=== PATIENT | female | born 1960 ===

== ENCOUNTER 2020-09-06 12:00 | Outpatient (RCR) | payer OTHER, SELFPAY | END 2020-09-06 12:44 | disposition other institution (70) | LOC: HO.PT 12:00 | PROVIDERS: PCP Internal Medicine; Visit Provider Orthopaedic Surgery | DX: Z47.1 Aftercare following joint replacement surgery (principal); Z96.651 Presence of right artificial knee joint | CPT/HCPCS: 97110; 97140; 97161; 97530 ==

== ENCOUNTER 2020-11-06 07:54 | Outpatient (REF) | payer OTHER, SELFPAY ==
--- NOTE | ~2020-11-06 | XR_ITS ---
EXAMINATION: XR HAND, RIGHT XR HAND LEFT XR CERVICAL SPINE CLINICAL INFORMATION: Poly osteoarthritis. COMPARISON: None TECHNIQUE: Three views each hand. Three views cervical spine. FINDINGS: RIGHT HAND: There is mild loss of PIP and DIP joints of all digits. There is moderate periarticular spurring PIP joint 1st digit. No visible acute fracture, dislocation or subluxation seen. The soft tissues are normal. LEFT HAND: There is no visible acute fracture, dislocation or subluxation. There is loss of PIP and DIP joints of all digits including periarticular spurring PIP joint 1st digit. No bony erosive changes are seen. There is no soft tissue swelling. CERVICAL SPINE: There is mild straightening of the cervical lordosis. There is mild ventral spondylosis at C2-C3, C3-C4, C4-C5, C5-C6, and C6-C7 disc levels. There is moderate left facet joint arthropathy C3-C4, C4-C5 and C5-C6 disc levels. No visible acute fracture or dislocation seen. The prevertebral soft tissues are normal XR/XR hand LT min 3V IMPRESSION: Degenerative arthritic changes PIP and DIP joints both hands. There is periarticular spurring PIP joint both 1st digits. Findings are most suggestive of osteoarthritis. Degenerative ventral spondylosis cervical spine. There is moderate left facet joint hypertrophy and arthropathy C3-C4, C4-C5 and C5-C6 disc levels.
--- NOTE | ~2020-11-06 | XR_ITS ---
EXAMINATION: XR HAND, RIGHT XR HAND LEFT XR CERVICAL SPINE CLINICAL INFORMATION: Poly osteoarthritis. COMPARISON: None TECHNIQUE: Three views each hand. Three views cervical spine. FINDINGS: RIGHT HAND: There is mild loss of PIP and DIP joints of all digits. There is moderate periarticular spurring PIP joint 1st digit. No visible acute fracture, dislocation or subluxation seen. The soft tissues are normal. LEFT HAND: There is no visible acute fracture, dislocation or subluxation. There is loss of PIP and DIP joints of all digits including periarticular spurring PIP joint 1st digit. No bony erosive changes are seen. There is no soft tissue swelling. CERVICAL SPINE: There is mild straightening of the cervical lordosis. There is mild ventral spondylosis at C2-C3, C3-C4, C4-C5, C5-C6, and C6-C7 disc levels. There is moderate left facet joint arthropathy C3-C4, C4-C5 and C5-C6 disc levels. No visible acute fracture or dislocation seen. The prevertebral soft tissues are normal XR/XR cervical spine 2V IMPRESSION: Degenerative arthritic changes PIP and DIP joints both hands. There is periarticular spurring PIP joint both 1st digits. Findings are most suggestive of osteoarthritis. Degenerative ventral spondylosis cervical spine. There is moderate left facet joint hypertrophy and arthropathy C3-C4, C4-C5 and C5-C6 disc levels.
--- NOTE | ~2020-11-06 | XR_ITS ---
EXAMINATION: XR HAND, RIGHT XR HAND LEFT XR CERVICAL SPINE CLINICAL INFORMATION: Poly osteoarthritis. COMPARISON: None TECHNIQUE: Three views each hand. Three views cervical spine. FINDINGS: RIGHT HAND: There is mild loss of PIP and DIP joints of all digits. There is moderate periarticular spurring PIP joint 1st digit. No visible acute fracture, dislocation or subluxation seen. The soft tissues are normal. LEFT HAND: There is no visible acute fracture, dislocation or subluxation. There is loss of PIP and DIP joints of all digits including periarticular spurring PIP joint 1st digit. No bony erosive changes are seen. There is no soft tissue swelling. CERVICAL SPINE: There is mild straightening of the cervical lordosis. There is mild ventral spondylosis at C2-C3, C3-C4, C4-C5, C5-C6, and C6-C7 disc levels. There is moderate left facet joint arthropathy C3-C4, C4-C5 and C5-C6 disc levels. No visible acute fracture or dislocation seen. The prevertebral soft tissues are normal XR/XR hand RT min 3V IMPRESSION: Degenerative arthritic changes PIP and DIP joints both hands. There is periarticular spurring PIP joint both 1st digits. Findings are most suggestive of osteoarthritis. Degenerative ventral spondylosis cervical spine. There is moderate left facet joint hypertrophy and arthropathy C3-C4, C4-C5 and C5-C6 disc levels.
[2020-11-06 09:46] LABS: MANUAL DIFF FLAG NO
[2020-11-06 09:55] LABS: Basophils Absolute Auto 0.1 X10*3/uL (0.0-0.2); Basophils Percent Auto 0.8 % (0-2); Eosinophils Absolute Auto 0.1 X10*3/uL (0.0-0.4); Hemoglobin 12.7 g/dl (12.0-16.0); Imm Gran Abs Auto 0.02 X10*3/uL (0.00-0.03); Imm Gran Pct Auto 0.3 % (0.0-0.4); Lymphocytes Absolute Auto 1.6 X10*3/uL (1.2-4.9); Mean Corpuscular Hemoglobin 26.4 pg (27.0-33.0); Mean Corpuscular Volume 85.2 fL (80-98); Mean Platelet Volume 9.3 fL (9.4-12.3); Monocytes Absolute Auto 0.6 X10*3/uL (0.1-1.2); Neutrophils Absolute Auto 4.3 X10*3/uL (2.0-8.3); Neutrophils Percent Auto 63.9 % (45-73); Platelet Count 327 X10*3/uL (160-400); Red Blood Count 4.81 X10*6/uL (4.20-5.50); Red Cell Distribution Width 14.1 % (11.0-16.0); White Blood Count 6.7 X10*3/uL (4.8-10.8)
[2020-11-06 10:18] LABS: Alanine Aminotransferase 27 U/L (0-31); Albumin Level 3.9 g/dL (3.5-5.0); Alkaline Phosphatase 88 U/L (39-117); Anion Gap 12 (12-20); Aspartate Amino Transferase 18 U/L (5-31); Blood Urea Nitrogen 16 mg/dL (9-16); C Reactive Protein 0.57 mg/dL (< or = 0.50); Calcium 9.3 mg/dL (8.4-10.2); Carbon Dioxide 30 mmol/L (22-29); Chloride 106 mmol/L (96-108); Estimated Glomerular Filt Rate > 60; Glucose Random 99 mg/dL (60-115); Potassium 4.8 mmol/L (3.3-5.1); Rheumatoid Factor 15.6 IU/mL (<15.0); Sodium 143 mmol/L (135-145); Total Protein 6.8 g/dL (6.5-8.0)
[2020-11-06 10:26] LABS: Bilirubin Total 0.5 mg/dL (0.0-1.0)
[2020-11-06 11:24] LABS: Erythrocyte Sedimentation Rate 28 MM/HR (0-20)
[2020-11-07 05:17] LABS: Lyme Abs Screen <0.90 index
[2020-11-07 21:27] LABS: Cyclic Citrullinated Peptide <16 UNITS
== END 2020-11-06 07:55 | disposition home or self-care (01) ==
LOC: HO.LAB 07:54
PROVIDERS: PCP Internal Medicine; Visit Provider Student in an Organized Health Care Education/Training Program
DX: M15.9 Polyosteoarthritis, unspecified (principal)
CPT/HCPCS: 36415; 72040; 73130; 80053; 85025; 85652; 86140; 86200; 86431; 86617; 86618; 99202

== ENCOUNTER → 2020-12-05 12:31 | Outpatient (BNVA) | payer OTHER, SELFPAY | PROVIDERS: PCP Internal Medicine; Visit Provider Student in an Organized Health Care Education/Training Program | DX: M15.9 Polyosteoarthritis, unspecified (principal); M47.812 Spondylosis without myelopathy or radiculopathy, cervical region | CPT/HCPCS: 99212 ==

== ENCOUNTER 2020-12-05 16:37 | Observation (INO) | payer OTHER, SELFPAY ==
--- NOTE | 2020-12-05 | ECG_ITS ---
Test Reason : SYNCOPE,DIZZINESS Blood Pressure : / mmHG Vent. Rate : 065 BPM Atrial Rate : 065 BPM P-R Int : 162 ms QRS Dur : 092 ms QT Int : 462 ms P-R-T Axes : 024 020 053 degrees QTc Int : 480 ms Normal sinus rhythm Prolonged QT Abnormal ECG When compared with ECG of 02-SEP-2014 17:21, No significant change was found Referred By: Generic ED Physician Electronically Signed By:ANNETTE POOL MD
--- NOTE | ~2020-12-05 | XR_ITS ---
EXAMINATION: XR CHEST CLINICAL INFORMATION: Shortness of breath COMPARISON: 07/31/2019 TECHNIQUE: Frontal view of the chest was obtained. FINDINGS: There is cardiac enlargement. Heart size appears larger than previously noted but some of this may be due to technique. Some left basilar atelectasis is present. No infiltrates, effusions, lung masses or CHF is present XR/XR chest 1V IMPRESSION: Cardiomegaly without acute intrathoracic disease. Left basilar atelectasis.
--- NOTE | ~2020-12-05 | CT_ITS ---
EXAMINATION: CT HEAD WITHOUT CONTRAST CLINICAL INFORMATION: Headache COMPARISON: 08/22/2019 TECHNIQUE: Contiguous axial imaging was performed from the skull base to vertex without intravenous administration of contrast. This CT examination was performed using dose optimization techniques as appropriate, variously including the following: *Automated exposure control *Adjustment of mA and/or kV according to patient size (this includes techniques or standardized protocols for targeted exams where dose is matched to indication/reason for exam; i.e. extremities or head) *Use of iterative reconstruction technique DLP: 770 mGy-cm FINDINGS: There is no evidence of acute intracranial hemorrhage or territorial infarction. No abnormal mass effect or midline shift is seen. Tyler to white matter differentiation is well preserved. No extra-axial fluid collections are identified. The ventricles are normal in size. There is no abnormal attenuation within the brain parenchyma. The osseous structures and soft tissues are normal. The mastoid air cells and visualized portions of the paranasal sinuses are well aerated. CT/CT head/brain wo con IMPRESSION: No acute intracranial pathology.
[2020-12-05 18:29] VITALS: BP 133/69; PULSE 70; RESP 20; TEMP 36.6; O2SAT 99; BMI 44.6
[2020-12-05 20:33] VITALS: BP 101/44; PULSE 71; RESP 18; O2SAT 96
[2020-12-05 20:44] LABS: MANUAL DIFF FLAG NO
[2020-12-05 20:46] LABS: Basophils Percent Auto 0.5 % (0-2); Eosinophils Absolute Auto 0.1 X10*3/uL (0.0-0.4); Eosinophils Percent Auto 1.5 % (0-4); Hematocrit 42.1 % (37-47); Hemoglobin 13.4 g/dl (12.0-16.0); Imm Gran Abs Auto 0.01 X10*3/uL (0.00-0.03); Imm Gran Pct Auto 0.1 % (0.0-0.4); Lymphocytes Absolute Auto 1.5 X10*3/uL (1.2-4.9); Lymphocytes Percent Auto 19.4 % (20-40); Mean Corpuscular HGB Conc 31.8 g/dl (31.0-35.0); Mean Corpuscular Hemoglobin 27.1 pg (27.0-33.0); Mean Corpuscular Volume 85.1 fL (80-98); Monocytes Absolute Auto 0.6 X10*3/uL (0.1-1.2); Monocytes Percent Auto 7.3 % (2-11); Neutrophils Absolute Auto 5.4 X10*3/uL (2.0-8.3); Neutrophils Percent Auto 71.2 % (45-73); Platelet Count 314 X10*3/uL (160-400); Red Blood Count 4.95 X10*6/uL (4.20-5.50); Red Cell Distribution Width 14.2 % (11.0-16.0); White Blood Count 7.5 X10*3/uL (4.8-10.8)
[2020-12-05 21:19] LABS: Troponin-I High Sensitivity < 3.5 ng/L (<3.5-17.0)
[2020-12-05 21:25] LABS: Alanine Aminotransferase 18 U/L (0-31); Albumin Level 4.1 g/dL (3.5-5.0); Alkaline Phosphatase 95 U/L (39-117); Anion Gap 14 (12-20); Aspartate Amino Transferase 16 U/L (5-31); Bilirubin Total < 0.2 mg/dL (0.0-1.0); Calcium 9.1 mg/dL (8.4-10.2); Carbon Dioxide 28 mmol/L (22-29); Chloride 104 mmol/L (96-108); Creatinine Clr Calc Pharmacy 85.2; Estimated Glomerular Filt Rate > 60; Glucose Random 90 mg/dL (60-115); Potassium 3.9 mmol/L (3.3-5.1); Sodium 142 mmol/L (135-145); Total Protein 7.1 g/dL (6.5-8.0)
[2020-12-05 21:34] LABS: Blood Urea Nitrogen 14 mg/dL (9-16)
[2020-12-06] VITALS (10 sets, daily range): BP systolic 125–160; BP diastolic 61–79; PULSE 84–97; RESP 12–24; TEMP 36.3–37.1; O2SAT 95–98
[2020-12-06] MEDS: 0.9 % Sodium Chloride 1,000 ML 999 ML IV (00:23)
[2020-12-06] MEDS: Ketorolac Tromethamine 15 MG/ML VIAL IVPUSH (00:23)
[2020-12-06] MEDS: Metoclopramide HCl 10 MG/2 ML VIAL IVPUSH (00:23)
[2020-12-06] MEDS: diphenhydrAMINE HCL 50 MG/ML VIAL 25 MG IVPUSH (00:23)
--- NOTE | 2020-12-06 00:35 | ED.CHESTPAIN ---
HPI - Chest Pain General Chief Complaint: Chest Pain Stated Complaint: dizziness, cant see from left eye Time Seen by Provider: 12/05/20 23:56 History of Present Illness HPI narrative: Patient is 59 years old presents today with having headaches. The headache is over the left side of her head. Associated with nausea. Patient in addition had chest pain and then felt lightheaded and passed out. Patient claims she was sitting there and passed out twice. Both times she had chest tightness. Denies any diaphoresis. No shortness of breath. Patient is from home. No coughing or congestion or upper respiratory symptoms. No vomiting. No history of stress test in the past. Positive history of hypertension, question history of TIA. It was documented in a previous clinic note. No fever no chills. Patient from home. Related Data Home Medications Medication Instructions Recorded Confirmed fluticasone 100 mcg-salmeterol 50 1 inh INHALATION BID 10/26/20 11/12/20 mcg/dose blistr powdr for inhalation nifedipine 90 mg tablet,extended 90 mg PO DAILY 10/26/20 11/12/20 release 24 hr omeprazole 20 mg capsule,delayed 20 mg PO DAILY 10/26/20 11/12/20 release diclofenac sodium 1 % topical gel 2 g TOPICAL QID 11/06/20 11/12/20 furosemide 40 mg tablet 40 mg PO Q OTHER DAY 11/06/20 11/12/20 Previous Rx's Medication Instructions Recorded fexofenadine 180 mg tablet 180 mg PO DAILY 30 Days #30 tab 11/12/20 fluticasone propionate 50 1 spray INTRANASAL DAILY 30 Days 11/12/20 mcg/actuation nasal #16 g spray,suspension labetalol 300 mg tablet 300 mg PO BID 30 Days #60 tab 11/12/20 prednisone 10 mg tablet 10 mg PO DAILY 6 Days #12 tab 11/12/20 albuterol sulfate 90 mcg/actuation 2 puff INHALATION Q4-6H 30 Days 12/05/20 aerosol inhaler #8.5 g Allergies Allergy/AdvReac Type Severity Reaction Status Date / Time Bryon inhibitors Allergy Unknown Unknown Verified 12/05/20 12:37 Ketoprofen Allergy Unknown unknown Verified 12/05/20 12:37 Review of Systems Review of Systems: Constitutional: No Weight loss, No Fever, No Chills, No Night Sweats, No Fatigue, No Malaise ENT/Mouth: No Hearing loss, No Ear Pain, No Nasal Congestion, No Sinus Pain, No Hoarseness, No sore throat, No Rhinorrhea, No Swallowing Difficulty Eyes: No Eye Pain, No Swelling, No Redness, No Foreign Body, No Discharge, No Vision Changes Cardiovascular: No Chest Pain, No SOB, No Dyspnea on Exertion, No Orthopnea, No Edema, No Palpitations Respiratory: No Cough, No Sputum, No Wheezing, No Smoke Exposure, No Dyspnea Gastrointestinal: No Nausea, No Vomiting, No Diarrhea, No Constipation, No abdominal Pain, No Hematochezia, No Melena Genitourinary: no irregular bleeding, No Dysuria, No Urinary Frequency, No Hematuria, No Urinary Incontinence, No Urgency, No Flank Pain, No Urinary Flow Changes, No Hesitancy Musculoskeletal: No joint pain, No Myalgias, No Joint Swelling Skin: No Skin Lesions, No rash Neuro: No Weakness, No Numbness, No Paresthesias, No Loss of Consciousness, No Dizziness, No Headache Psych: No Anxiety/Panic, No Depression, No SI/HI/AH/VH, No Social Issues, Heme/Lymph: No Bruising, No Bleeding,No Lymphadenopathy Endocrine: No Polyuria, No Polydipsia, No Temperature Intolerance PMFSH Past Medical History Attestation statement: The following information was validated with the patient. Medical History Ampullary adenoma Ascending cholangitis Asthma Cervical spondylosis Depression with anxiety Failed back syndrome Fatty liver GERD (gastroesophageal reflux disease) Gout Hypertension Obesity Obstructive sleep apnea Osteoarthritis Pancreatitis Restrictive lung disease TIA (transient ischemic attack) Vitamin B12 deficiency Vitamin D deficiency Surgical History H/O rectal polypectomy History of carpal tunnel release History of laparoscopic cholecystectomy History of left knee replacement History of lumbar discectomy History of tumor Status post right knee replacement Family History Family History Father Prostate cancer Colon cancer Hypertension Mother Gastric cancer Diabetes Osteoarthritis Social History Social History Alcohol intake: never Patient Tobacco Use Status: Never used Tobacco Advance Directives: No Advance Directives Information Provided: No Patient : No Physical Exam Vital Signs: Vital Signs: Last Vital Signs Temp 97.8 F 12/05/20 18:29 Pulse 71 12/05/20 20:33 Resp 18 12/05/20 20:33 BP 101/44 L 12/05/20 20:33 Pulse Ox 96 12/05/20 20:33 Body Mass Index 44.6 Appearance: Alert. Oriented X3. No acute distress. Eyes: Pupils equal, round and reactive to light. ENT: Pharynx normal. Neck: Normal inspection. Neck supple. No lymph nodes noted. No crepitus CVS: Normal heart rate and rhythm. Pulses normal. Normal S1 and S2 Respiratory: No respiratory distress. Breath sounds normal. No Wheezing. No rales Abdomen: Soft and nontender. No rigidity. No distention. good BS x4 Skin: Skin warm and dry. Normal skin color. Normal skin turgor. Extremities: No lower extremity edema. Neurovascular intact to all extremities. No Lacerations. No Rash Neuro: Oriented X 3. No motor deficit. No sensory deficit. Moving all extermities. No slurred speech MDM - Chest Pain MDM Narrative Medical decision making narrative: Patient had chest pain then had syncopal episode. On arrival patient had a headache. The headache is over 1 side of the head. Is similar to previous bouts of migraine. Given migraine treatment with moderate results of headache being resolved. Patient had syncopal episode with chest pain. Will admit for observation overnight. Currently in stable condition. Patient's EKG was unchanged when compared to 1 from 2014. Patient's cardiac enzyme were negative. In stable condition. Awaiting admission to the hospitalist service. Patient's case discussed with hospitalist. Medical Records Data Attestation: I reviewed the patient's medical records. Lab Data Attestation: I reviewed the patient's lab results. Result diagrams: 12/05/20 20:40 12/05/20 20:40 Labs: Lab Results 12/05/20 12/05/20 12/05/20 Range/Units 20:40 20:40 20:40 WBC 7.5 (4.8-10.8) X10*3/uL RBC 4.95 (4.20-5.50) X10*6/uL Hgb 13.4 (12.0-16.0) g/dl Hct 42.1 (37-47) % MCV 85.1 (80-98) fL MCH 27.1 (27.0-33.0) pg MCHC 31.8 (31.0-35.0) g/dl RDW 14.2 (11.0-16.0) % Plt Count 314 (160-400) X10*3/uL MPV 9.0 L (9.4-12.3) fL Immature Gran % (Auto) 0.1 (0.0-0.4) % Neut % (Auto) 71.2 (45-73) % Lymph % (Auto) 19.4 L (20-40) % Runnels % (Auto) 7.3 (2-11) % Eos % (Auto) 1.5 (0-4) % Baso % (Auto) 0.5 (0-2) % Lymph # (Auto) 1.5 (1.2-4.9) X10*3/uL Runnels # (Auto) 0.6 (0.1-1.2) X10*3/uL Eos # (Auto) 0.1 (0.0-0.4) X10*3/uL Baso # (Auto) 0.0 (0.0-0.2) X10*3/uL Abs Immat Gran (auto) 0.01 (0.00-0.03) X10*3/uL Absolute Neuts (auto) 5.4 (2.0-8.3) X10*3/uL Absolute Nucleated RBC 0.000 (0.0-0.012) X10*3/uL Nucleated RBC % (auto) 0.0 (0.0-0.2) /100WBC Sodium 142 (135-145) mmol/L Potassium 3.9 (3.3-5.1) mmol/L Chloride 104 (96-108) mmol/L Carbon Dioxide 28 (22-29) mmol/L Anion Gap 14 (12-20) BUN 14 (9-16) mg/dL Creatinine 0.92 (0.5-1.4) mg/dL Estim Creat Clear Calc 85.2 Estimated GFR > 60 Random Glucose 90 (60-115) mg/dL Calcium 9.1 (8.4-10.2) mg/dL Total Bilirubin < 0.2 (0.0-1.0) mg/dL AST 16 (5-31) U/L ALT 18 (0-31) U/L Alkaline Phosphatase 95 (39-117) U/L Troponin I High Sens < 3.5 (<3.5-17.0) ng/L Total Protein 7.1 (6.5-8.0) g/dL Albumin 4.1 (3.5-5.0) g/dL Discharge Plan Discharge Patient Disposition: Admitted As Inpatient
[2020-12-06] MEDS: Aspirin 325 MG TABLET PO (03:05)
--- NOTE | 2020-12-06 04:02 | P.HPHOSP_ITS ---
History of Present Illness Date of Service: 12/06/20 Chief Complaint: Chest pain 59-year-old female with a past medical history of hypertension, hyperlipidemia, obesity, gout, TIA, obstructive sleep apnea, osteoarthritis, history of pancreatitis, anxiety, depression, history of cervical spondylolysis, asthma, restrictive lung disease presented to the hospital with a chief complaint of chest pain. Patient mentions that yesterday afternoon she had observed of the chest pain, hip in nature, nonradiating no associated sweating; noted nausea. Subsequently she had an episode of syncope unknown amount of downtime; denies any seizure-like activity. Denies any confusion. Denies any lightheadedness or dizziness. Patient reports that she had 2 episodes of syncope yesterday afternoon. Later in the evening patient mentioned that she started to noted days weak on her left side more so on the left upper extremity including numbness. Patient also reports he felt numbness on her left side of the face both upper and lower. At the time of my interview patient reports the chest pain improved, her left upper extremity numbness improving but still persistent. Left leg appears to have improved symptoms. Patient reports that she has headaches and blurry visions which are improving at the time of my entry. Denies any fever chills cough. Denies any GI or symptoms. Review of all other systems is negative except mentioned above ER course: Per ER team patient was given pain medicine for the headache. EKG was nonischemic for chest pain. CT head showed no acute findings. Labs essentially benign. Admitted to the hospital for further management. [facility] Medical History (Updated 12/08/20 @ 10:50 by Yobany Lemos MD) Ampullary adenoma Ascending cholangitis Asthma Cervical spondylosis Depression with anxiety Failed back syndrome Fatty liver GERD (gastroesophageal reflux disease) Gout Hypertension Obesity Obstructive sleep apnea Osteoarthritis Pancreatitis Restrictive lung disease TIA (transient ischemic attack) Vitamin B12 deficiency Vitamin D deficiency Family History Father Prostate cancer Colon cancer Hypertension Mother Gastric cancer Diabetes Osteoarthritis Surgical History H/O rectal polypectomy History of carpal tunnel release History of laparoscopic cholecystectomy History of left knee replacement History of lumbar discectomy History of tumor Status post right knee replacement Social History (Updated 12/06/20 @ 16:29 by Joana Amaya RN) Alcohol intake: unknown Patient Tobacco Use Status: Never used Tobacco service: No Current occupational status: unemployed Meds Allergies Allergy/AdvReac Type Severity Reaction Status Date / Time Bryon inhibitors Allergy Unknown Unknown Verified 12/05/20 12:37 Ketoprofen Allergy Unknown unknown Verified 12/05/20 12:37 Active Medications: Current Medications Generic Name Dose Route Start Last Admin Trade Name Freq PRN Reason Stop Dose Admin Acetaminophen 650 mg 12/06/20 03:48 Acetaminophen 325 Mg Tablet PO Q6H PRN Pain, Mild (Pain Scale 1-3) Aspirin 81 mg 12/06/20 09:00 Aspirin Enteric Coated 81 Mg Tablet.Dr PO DAILY [facility] Atorvastatin Calcium 80 mg 12/06/20 09:00 Atorvastatin Calcium 80 Mg Tablet PO DAILY [facility] Enoxaparin Sodium 40 mg 12/06/20 04:00 Enoxaparin Sodium 40 Mg/0.4 Ml Syringe SUBCUT Q24H [facility] Sodium Chloride 1,000 mls @ 100 mls/hr 12/06/20 04:00 Ns IVCONT .Q10H [facility] Magnesium Hydroxide 30 ml 12/06/20 03:48 Milk Of Magnesia 30 Ml Oral.Susp PO DAILY PRN Constipation Nitroglycerin 0.4 mg 12/06/20 03:48 Nitroglycerin 0.4 Mg Tab.Subl SUBLINGUAL Q5M PRN Chest Pain Senna 17.2 mg 12/06/20 03:48 Sennosides 8.6 Mg Tablet PO BEDTIME PRN Constipation Sodium Chloride 3 ml 12/06/20 08:00 0.9 % Sodium Chloride Flush 3 Ml Syringe IVFLUSH QSHIFT [facility] Home Medications Medication Instructions Recorded Confirmed Last Taken Type diclofenac sodium 1 % topical gel 2 g TOPICAL QID 11/06/20 12/06/20 Unknown History albuterol sulfate 2 puff INHALATION Q4H PRN 12/06/20 12/06/20 Unknown History fexofenadine 1 tab PO DAILY 12/06/20 12/06/20 12/05/20 History fluticasone propion-salmeterol 1 puff PO BID 12/06/20 12/06/20 12/05/20 History [Wixela Inhub] fluticasone propionate 1 spray INTRANASAL DAILY 12/06/20 12/06/20 12/05/20 History furosemide 1 tab PO DAILY 0612/06/20 12/05/20 History labetalol 1 tab PO BID 12/06/20 12/06/20 12/05/20 History nifedipine 1 tab PO DAILY 12/06/20 12/05/20 History Physical Exam Vital Signs and Narrative: Vital Signs: Last Vital Signs Temp 97.8 F 12/06/20 03:07 Pulse 85 12/06/20 03:07 Resp 16 12/06/20 03:07 BP 136/61 12/06/20 03:07 Pulse Ox 97 12/06/20 03:07 Body Mass Index 44.6 Gen: Appears be in no acute distress; speaks in full sentences. Obese HEENT: NCAT, Moist mucosa. Pulmonary: Vesicular breath sounds, fair air entry CVS: Normal S1-S2 Abdomen: BS+, Soft, Nontender Extremities: Warm well perfused Neuro: Alert and awake. Speech is clear. Stent is fairly equal bilaterally; sensations intact bilateral in the lower extremities. On the left upper extremity noted to have mildly decreased sensation and also on the left side of the face. No facial droop. Results Labs CBC and Chem 7: 12/06/20 04:14 12/06/20 04:14 Labs: Laboratory Results - last 24 hr 12/05/20 12/05/20 12/05/20 20:40 20:40 20:40 MCV 85.1 MCH 27.1 MCHC 31.8 RDW 14.2 Plt Count 314 MPV 9.0 L Immature Gran % (Auto) 0.1 Neut % (Auto) 71.2 Lymph % (Auto) 19.4 L Campbell % (Auto) 7.3 Eos % (Auto) 1.5 Baso % (Auto) 0.5 Lymph # (Auto) 1.5 Campbell # (Auto) 0.6 Eos # (Auto) 0.1 Baso # (Auto) 0.0 Abs Immat Gran (auto) 0.01 Absolute Neuts (auto) 5.4 Absolute Nucleated RBC 0.000 Nucleated RBC % (auto) 0.0 Anion Gap 14 Estim Creat Clear Calc 85.2 Estimated GFR > 60 Random Glucose 90 Calcium 9.1 Total Bilirubin < 0.2 AST 16 ALT 18 Alkaline Phosphatase 95 Troponin I High Sens < 3.5 Total Protein 7.1 Albumin 4.1 Imaging Radiologist's Impressions: Impressions Chest X-Ray 12/06/20 00:05 IMPRESSION: Cardiomegaly without acute intrathoracic disease. Left basilar atelectasis. Head CT 12/06/20 00:05 IMPRESSION: No acute intracranial pathology. Assessment and Plan (1) Chest pain: Status: Acute 59-year-old female with a past medical history of hypertension, hyperlipidemia, obesity, LOKESH, asthma, vitamin B12 deficiency, vitamin-D def iciency, history of TIA, restrictive lung disease, osteoarthritis, history of cervical spondylosis, anxiety, depression, fatty liver presented to the hospital with a chief complaint of chest pain/syncope/left-sided weakness/numbness. Chest pain: A currently improved. EKG nonischemic. Troponin negative. Echocardiogram. Cardiology consult. D-dimer pending Syncope: No evidence of bradycardia or AV blocks noted on the EKG. Will obtain echocardiogram as mentioned. Fall precautions. Patient educated not to drive for 6 months of symptoms free period. Headaches: Improving. Patient does report that she has a history of migraine headaches. Left upper extremity numbness: Patient does report left-sided weakness prior to coming to the hospital which is improving. Currently reports he still has persistent left upper extremity numbness and left face numbness. Patient does have a history of cervical spondylosis. Will obtain cervical spine MRI. Will also obtain MRI brain/MRA head and neck. Neurology consult for further recommendations. For all other chronic conditions, home medications will be continued DVT prophylaxis: Lovenox Code status: Full code
[2020-12-06 04:27] LABS: MANUAL DIFF FLAG NO
[2020-12-06 04:29] LABS: Basophils Percent Auto 0.6 % (0-2); Eosinophils Absolute Auto 0.2 X10*3/uL (0.0-0.4); Eosinophils Percent Auto 2.7 % (0-4); Hemoglobin 13.1 g/dl (12.0-16.0); Imm Gran Abs Auto 0.01 X10*3/uL (0.00-0.03); Imm Gran Pct Auto 0.1 % (0.0-0.4); Lymphocytes Absolute Auto 1.8 X10*3/uL (1.2-4.9); Lymphocytes Percent Auto 25.5 % (20-40); Mean Corpuscular Hemoglobin 27.1 pg (27.0-33.0); Mean Corpuscular Volume 84.9 fL (80-98); Mean Platelet Volume 9.2 fL (9.4-12.3); Monocytes Absolute Auto 0.5 X10*3/uL (0.1-1.2); Neutrophils Absolute Auto 4.5 X10*3/uL (2.0-8.3); Neutrophils Percent Auto 64.1 % (45-73); Platelet Count 298 X10*3/uL (160-400); Red Blood Count 4.83 X10*6/uL (4.20-5.50); Red Cell Distribution Width 14.1 % (11.0-16.0)
[2020-12-06 04:42] LABS: D Dimer 265 NG/ML
[2020-12-06] MEDS: 0.9 % Sodium Chloride 1,000 ML 100 ML IVCONT ×3 (04:49→21:33)
[2020-12-06] MEDS: Enoxaparin Sodium 40 MG/0.4 ML SYRINGE SUBCUT (04:50)
[2020-12-06 05:01] LABS: Anion Gap 13 (12-20); Blood Urea Nitrogen 10 mg/dL (9-16); Calcium 8.7 mg/dL (8.4-10.2); Carbon Dioxide 25 mmol/L (22-29); Chloride 107 mmol/L (96-108); Creatinine Clr Calc Pharmacy 101.7; Estimated Glomerular Filt Rate > 60; Glucose Random 99 mg/dL (60-115); Potassium 3.6 mmol/L (3.3-5.1); Sodium 141 mmol/L (135-145)
[2020-12-06 05:02] LABS: Cholesterol 186 mg/dL; HDL Cholesterol 57 mg/dL; LDL Cholesterol Calculated 109 mg/dl; Triglycerides 101 mg/dL
[2020-12-06 05:09] LABS: Troponin-I High Sensitivity < 3.5 ng/L (<3.5-17.0)
[2020-12-06 05:25] LABS: Glucose Urine UA NEG (NEG); Leukocyte Esterase Urine NEG (NEG); Nitrite Urine NEG (NEG); Urine Blood NEG (NEG); Urine Ketones NEG (NEG); Urine Protein NEG (NEG-TRACE)
[2020-12-06 05:26] LABS: COVID-19 Test Negative (Negative); IDNOW Serial# 9DD0AD1C
[2020-12-06 05:29] LABS: Appearance Urine CLEAR; Color Urine YELLOW
[2020-12-06 08:23] LABS: Estimated Average Glucose 114 mg/dL; Hemoglobin A1c % 5.6 %
--- NOTE | 2020-12-06 09:02 | HE.PHANOTE ---
Patient reports taking Nifedipine 90 mg ER. daily, though she hasnt filled it since 03/2020, she said she only filld at one [facility] and I confirmed last fill of March.No new notes from cardiology office Reported to . Oriana CarterD
[2020-12-06] MEDS: Aspirin Enteric Coated 81 MG TABLET.DR PO (09:54)
[2020-12-06] MEDS: Atorvastatin Calcium 80 MG TABLET PO (09:54)
--- NOTE | 2020-12-06 12:41 | MHC.SL.SWA ---
Speech Pathologist Impression: Within Functional Limits Risk of Aspiration Due to: Neurological Condition Dysphasia Diet Status: No Change Liquid Consistency and Strategies for Safe Swallow: Liquid Intake Recommendation: Thin Liquid Intake Strategies: Unrestricted Solid Food Consistency: Dietary Recommendations: Regular Oral Medication Intake: Whole with Liquid Compensatory Strategies and Precautions to be Taken for Safe Swallow: Sitting Upright (90 deg) Small Bites and Sips Alternate Liquids/Solids Rate of Ingestion Change Supervision While Eating and Drinking for Safe Swallow: None Needed Swallowing Recommended Treatments: Compens. Strategy Educat. Recommendation for Speech: NA:Typical Evaluation Comment: [facility] will follow up 1x time to ensure tolerance. If concern for globus sensation persists, patient may benefit from outpatient MBSS. Ink Grinder Clinican/Clinical Fellow: No Supervisory Statement: I have reviewed and agree with the student/clinical fellow's documentation: N/A Speech Language Pathologist: Nia Lester M.A., [facility]
--- NOTE | 2020-12-06 14:16 | PM.EVENT ---
Documented by User: ARIAN Lee 12/06/20 14:36 Event Note Date of Service: 12/06/20 Event Note: admitted for syncope, left sided headache, left sided facial and LUE numbness she reports 4 days of left sided headache. she has h/o migraines, but this pain is more severe. this is associated with some photophobia. she denies fever, chills or neck pain. she has also had 2 days of left arm pain described as pins and needles from her left trapezius area to her left hand including all of her fingers. she also described difficulty swallowing food including liquids, although she was seen by speech and passed her swallow evaluation. due to this issue she has not been eating as much as usual. yesterday she reports 2 episodes of syncope. these both occurred after changing positions from sitting to standing. she stood up, felt everything go black and woke up on the floor. this has never happened before. syncope seems r/t orthostasis in the setting of decreased PO intake -check orthostatic blood pressures -echo pending left face/arm numbness she states this has happened in the past no focal deficits. brain CT negative. out of window for tpa -MRI brain pending -neuro consult -seen by PT/OT -continue asa, statin dysphagia passed bedside swallow eval, but describing difficulty swallowing preventing her from eating -MBSS headache h/o migraines but not on medication -neuro eval pending -prn fioricet chest pain trop flat x 2, no ekg changes Morbid obesity. BMI 44.6 HTN -continue home meds dvt ppx - lovenox attending; dr montaño Documented by User: Los Montaño MD 12/06/20 17:32 Event Note Date of Service: 12/06/20
--- NOTE | 2020-12-06 15:23 | MHC.CM.PN ---
CM MET WITH PT AND HER DAUGHTER WHO WAS AT BEDSIDE. PT REPORTS SHE LIVES WITH HER DAUGHTER AND IS INDEPENDENT WITH CARE AND MOBILITY. PT DENIES USING DME OR HAVING IN HOME SERVICES. PT CONFIRMS HER PCP IS [facility] GU[facility] AND STATES SHE HAS A HCP ALREADY COMPLETED NAMING HER DAUGHTER AND HER AGENTS. OBS NOTICE DELIVERED CURRENT DC PLAN IS HOME WITH NO SERVICES FAMILY WILL TRANSPORT
--- NOTE | 2020-12-06 15:45 | P.CONCA_ITS ---
History of Present Illness History of Present Illness Date of Service: 12/06/20 Requesting physician: Dodie Davalos Consult reason: other (Syncope) Chief complaint: Syncope Narrative: I was requested to see ongoing cardiology consultation today for symptoms of syncope. She is a 59-year-old woman with prior history of [id number] hypertension on multiple medications, obstructive sleep apnea, morbid obesity, exertional shortness of breath worked up last year which had shown normal LV systolic function without any significant valvular abnormality and a normal myocardial perfusion imaging. Patient present the hospital because she said over the last 4 days she has significant left-sided headache. This was unrelenting. She subsequently at home yesterday was having severe pain and got up from sitting position, she got lightheaded and felt vision turning dark and then she passed out and was on the floor. She subseq uently again got up to call 911 and passed out again. She then just sat down and waited for sister to arrive and was brought to the emergency room. EKG in the ED showed normal sinus rhythm with mildly prolonged QTC interval otherwise normal EKG. She says over the last month or so she is also having choking sensation in her throat and has not been able to swallow. She denies any new other cardiovascular symptoms. Review of Systems Constitutional: Constitutional: Reports no additional constitutional complaints Cardiovascular: Cardiovascular: Denies chest pain, Reports leg edema, Reports Loss of Consciousness, Denies palpitations and Reports dyspnea on exertion Respiratory: Respiratory: Reports no additional respiratory complaints and Reports dyspnea on exertion Gastrointestinal: Gastrointestinal: Reports no additional gastrointestinal complaints Neurologic: Reports system reviewed and no additional complaints, except as documented Psychiatric: Psychiatric: Reports no additional psychiatric complaints Endocrine: Endocrine: Reports no additional endocrine complaints and Denies palpitations PMFSH Past Medical History Medical History Ampullary adenoma Ascending cholangitis Asthma Cervical spondylosis Depression with anxiety Failed back syndrome Fatty liver GERD (gastroesophageal reflux disease) Gout Hypertension Obesity Obstructive sleep apnea Osteoarthritis Pancreatitis Restrictive lung disease TIA (transient ischemic attack) Vitamin B12 deficiency Vitamin D deficiency Family History Family History Father Prostate cancer Colon cancer Hypertension Mother Gastric cancer Diabetes Osteoarthritis Surgical History Surgical History H/O rectal polypectomy History of carpal tunnel release History of laparoscopic cholecystectomy History of left knee replacement History of lumbar discectomy History of tumor Status post right knee replacement Social History Social History Alcohol intake: unknown Patient Tobacco Use Status: Never used Tobacco Use of substances other than those prescribed or required for medical reasons: No Advance Directives: No Advance Directives Information Provided: No Patient : No service: No Current occupational status: unemployed Meds Allergies Allergy/AdvReac Type Severity Reaction Status Date / Time Bryon inhibitors Allergy Unknown Unknown Verified 12/05/20 12:37 Ketoprofen Allergy Unknown unknown Verified 12/05/20 12:37 Active Medications: Current Medications Generic Name Dose Route Start Last Admin Trade Name Freq PRN Reason Stop Dose Admin Acetaminophen 650 mg 12/06/20 03:48 Acetaminophen 325 Mg Tablet PO Q6H PRN Pain, Mild (Pain Scale 1-3) Acetaminophen/Butalbital/Caffeine 1 tab 12/06/20 14:29 Butalb/Acetamin/Caff 50/325/40 Tablet PO Q4H PRN Headache Albuterol Sulfate 2 puff 12/06/20 14:32 Albuterol Sulfate 90 Mcg 8 Gm Inhaler INHALE Q4H PRN Shortness Of Breath Aspirin 81 mg 12/06/20 09:00 12/06/20 09:54 Aspirin Enteric Coated 81 Mg Tablet.Dr PO 81 mg DAILY ED Administration Atorvastatin Calcium 80 mg 12/06/20 09:00 12/06/20 09:54 Atorvastatin Calcium 80 Mg Tablet PO 80 mg DAILY ED Administration Enoxaparin Sodium 40 mg 12/06/20 05:00 12/06/20 04:50 Enoxaparin Sodium 40 Mg/0.4 Ml Syringe SUBCUT 40 mg Q24H ED Administration Fluticasone Propionate 1 spray 12/07/20 09:00 Fluticasone Propionate Nasal 16 Gm [place] NOSTRIL-B DAILY ED Fluticasone/Vilanterol 1 puff 12/07/20 08:00 Fluticasone/Vilanterol 100/25 Blst.W.Dev INHALE RDAILY ED Furosemide 40 mg 12/07/20 09:00 Furosemide 40 Mg Tablet PO DAILY ED Protocol Sodium Chloride 1,000 mls @ 100 mls/hr 12/06/20 04:00 12/06/20 14:47 Ns IVCONT 100 mls/hr .Q10H [facility] Administration Labetalol HCl 300 mg 12/06/20 21:00 Labetalol Hcl 100 Mg Tablet PO BID [facility] Magnesium Hydroxide 30 ml 12/06/20 03:48 Milk Of Magnesia 30 Ml Oral.Susp PO DAILY PRN Constipation Nitroglycerin 0.4 mg 12/06/20 03:48 Nitroglycerin 0.4 Mg Tab.Subl SUBLINGUAL Q5M PRN Chest Pain Non-Formulary Medication 2 gm 12/06/20 17:00 Diclofenac Sodium [Voltaren] TOPICAL QID [facility] Pharmacy Consult 1 each 12/06/20 09:04 Consult Rx Perform Med Rec MISCELLANE ONCE PRN Consult order Senna 17.2 mg 12/06/20 03:48 Sennosides 8.6 Mg Tablet PO BEDTIME PRN Constipation Sodium Chloride 3 ml 12/06/20 08:00 12/06/20 15:02 0.9 % Sodium Chloride Flush 3 Ml Syringe IVFLUSH Not Given QSHIFT [facility] Home Medications Medication Instructions Recorded Confirmed Last Taken Type diclofenac sodium 1 % topical gel 2 g TOPICAL QID 11/06/20 12/06/20 Unknown History albuterol sulfate 2 puff INHALATION Q4H PRN 12/06/20 12/06/20 Unknown History fexofenadine 1 tab PO DAILY 12/06/20 12/06/20 12/05/20 History fluticasone propion-salmeterol 1 puff PO BID 12/06/20 12/06/20 12/05/20 History [Wixela Inhub] fluticasone propionate 1 spray INTRANASAL DAILY 12/06/20 12/06/20 12/05/20 History furosemide 1 tab PO DAILY 12/06/20 12/06/20 12/05/20 History labetalol 1 tab PO BID 12/06/20 12/06/20 12/05/20 History nifedipine 1 tab PO DAILY 12/06/20 12/05/20 History Physical Exam Vital Signs: Vital Signs: Last Vital Signs Temp 98.2 F 12/06/20 04:41 Pulse 84 12/06/20 08:11 Resp 24 H 12/06/20 04:41 BP 142/65 H 12/06/20 08:11 Pulse Ox 95 12/06/20 08:11 Body Mass Index 44.6 Const: General: cooperative, comfortable, no acute distress, alert and awake Nutritional Appearance: obese morbidly obese Orientation/consciousness: patient oriented x3 HENMT: Head: Yes normocephalic and Yes atraumatic Neck: Neck: Yes trachea midline, Yes supple and Yes no JVD Resp: Effort & Inspection: normal respiratory effort Auscultation: clear to auscultation bilaterally Cardio: Jugular venous distension: no JVD Rate: regular rate Rhythm: reg ular rhythm Heart sounds: S1 normal heart sound present and S2 normal heart sound present GI: Inspection: Yes Abdominal panniculus present and Yes obesity A uscultation: normal bowel sounds Skin: General skin exam: no rashes or lesions noted Neuro: General: patient oriented x3 and no focal motor deficits Extrem: General: Yes no clubbing, cyanosis or edema Results Labs and Meds Result diagrams: 12/06/20 04:14 12/06/20 04:14 Lab results: Laboratory Results - last 24 hr 12/05/20 12/05/20 12/05/20 20:40 20:40 20:40 WBC 7.5 RBC 4.95 Hgb 13.4 Hct 42.1 MCV 85.1 MCH 27.1 MCHC 31.8 RDW 14.2 Plt Count 314 MPV 9.0 L Immature Gran % (Auto) 0.1 Neut % (Auto) 71.2 Lymph % (Auto) 19.4 L [place] % (Auto) 7.3 Eos % (Auto) 1.5 Baso % (Auto) 0.5 Lymph # (Auto) 1.5 [place] # (Auto) 0.6 Eos # (Auto) 0.1 Baso # (Auto) 0.0 Abs Immat Gran (auto) 0.01 Absolute Neuts (auto) 5.4 Absolute Nucleated RBC 0.000 Nucleated RBC % (auto) 0.0 D-Dimer Sodium 142 Potassium 3.9 Chloride 104 Carbon Dioxide 28 Anion Gap 14 BUN 14 Creatinine 0.92 Estim Creat Clear Calc 85.2 Estimated GFR > 60 Random Glucose 90 Estimat Average Glucose Hemoglobin A1c % Calcium 9.1 Total Bilirubin < 0.2 AST 16 ALT 18 Alkaline Phosphatase 95 Troponin I High Sens < 3.5 Total Protein 7.1 Albumin 4.1 Triglycerides Cholesterol LDL Cholesterol, Calc HDL Cholesterol Urine Color Urine Appearance Urine pH Ur Specific [place] Urine Protein Urine Glucose (UA) Urine Ketones Urine Blood Urine Nitrite Ur Leukocyte Esterase COVID-19 ([facility]) COVID-19 Clin Com 12/06/20 12/06/20 12/06/20 04:14 04:14 04:14 WBC 7.0 RBC 4.83 Hgb 13.1 Hct 41.0 MCV 84.9 MCH 27.1 MCHC 32.0 RDW 14.1 Plt Count 298 MPV 9.2 L Immature Gran % (Auto) 0.1 Neut % (Auto) 64.1 Lymph % (Auto) 25.5 [place] % (Auto) 7.0 Eos % (Auto) 2.7 Baso % (Auto) 0.6 Lymph # (Auto) 1.8 [place] # (Auto) 0.5 Eos # (Auto) 0.2 Baso # (Auto) 0.0 Abs Immat Gran (auto) 0.01 Absolute Neuts (auto) 4.5 Absolute Nucleated RBC 0.000 Nucleated RBC % (auto) 0.0 D-Dimer 265 Sodium Potassium Chloride Carbon Dioxide Anion Gap BUN Creatinine Estim Creat Clear Calc Estimated GFR Random Glucose Estimat Average Glucose Hemoglobin A1c % Calcium Total Bilirubin AST ALT Alkaline Phosphatase Troponin I High Sens < 3.5 Total Protein Albumin Triglycerides Cholesterol LDL Cholesterol, Calc HDL Cholesterol Urine Color Urine Appearance Urine pH Ur Specific [place] Urine Protein Urine Glucose (UA) Urine Ketones Urine Blood Urine Nitrite Ur Leukocyte Esterase COVID-19 ([facility]) COVID-19 [employer] Com 12/06/20 12/06/20 12/06/20 04:14 04:14 04:14 WBC RBC Hgb Hct MCV MCH MCHC RDW Plt Count MPV Immature Gran % (Auto) Neut % (Auto) Lymph % (Auto) [place] % (Auto) Eos % (Auto) Baso % (Auto) Lymph # (Auto) [place] # (Auto) Eos # (Auto) Baso # (Auto) Abs Immat Gran (auto) Absolute Neuts (auto) Absolute Nucleated RBC Nucleated RBC % (auto) D-Dimer Sodium 141 Potassium 3.6 Chloride 107 Carbon Dioxide 25 Anion Gap 13 BUN 10 Creatinine 0.77 Estim Creat Clear Calc 101.7 Estimated GFR > 60 Random Glucose 99 Estimat Average Glucose 114 Hemoglobin A1c % 5.6 Calcium 8.7 Total Bilirubin AST ALT Alkaline Phosphatase Troponin I High Sens Total Protein Albumin Triglycerides 101 Cholesterol 186 LDL Cholesterol, Calc 109 HDL Cholesterol 57 Urine Color Urine Appearance Urine pH Ur Specific [place] Urine Protein Urine Glucose (UA) Urine Ketones Urine Blood Urine Nitrite Ur Leukocyte Esterase COVID-19 ([facility]) COVID-19 Clin Com 12/06/20 12/06/20 04:45 05:18 WBC RBC Hgb Hct MCV MCH MCHC RDW Plt Count MPV Immature Gran % (Auto) Neut % (Auto) Lymph % (Auto) [place] % (Auto) Eos % (Auto) Baso % (Auto) Lymph # (Auto) [place] # (Auto) Eos # (Auto) Baso # (Auto) Abs Immat Gran (auto) Absolute Neuts (auto) Absolute Nucleated RBC Nucleated RBC % (auto) D-Dimer Sodium Potassium Chloride Carbon Dioxide Anion Gap BUN Creatinine Estim Creat Clear Calc Estimated GFR Random Glucose Estimat Average Glucose Hemoglobin A1c % Calcium Total Bilirubin AST ALT Alkaline Phosphatase Troponin I High Sens Total Protein Albumin Triglycerides Cholesterol LDL Cholesterol, Calc HDL Cholesterol Urine Color YELLOW Urine Appearance CLEAR Urine pH 7.0 Ur Specific [place] 1.020 Urine Protein NEG Urine Glucose (UA) NEG Urine Ketones NEG Urine Blood NEG Urine Nitrite NEG Ur Leukocyte Esterase NEG COVID-19 ([facility]) Negative COVID-19 Clin Com See Note Imaging Radiologist's impression: Impressions Chest X-Ray 12/06/20 00:05 IMPRESSION: Cardiomegaly without acute intrathoracic disease. Left basilar atelectasis. Head CT 12/06/20 00:05 IMPRESSION: No acute intracranial pathology. Assessment and Plan (1) Syncope: Status: Acute Patient syncope clearly appears to be orthostatic in nature could be vasovagal from severe pain. Benign nature of this was discussed. She does have difficult to control blood pressure and noted that she has highly labile blood pressure. However continue all her medications. There is no obvious other cardiac etiology for syncope. She is currently being admitted because of the headache and further workup. Neurology consult for the same. While she is admitted continue full disclosure cardiac monitoring. No other workup is indicated as inpatient. May require outpatient tilt-table test. Will sign of the case. Thank you for allowing me to partake in her care Procedures Date of Service Date of Service: 12/06/20
[2020-12-06] MEDS: Labetalol HCL 100 MG TABLET 300 MG PO (20:21)
[2020-12-07] VITALS (11 sets, daily range): BP systolic 125–175; BP diastolic 61–84; PULSE 71–85; RESP 18–20; TEMP 36.1–37.3; O2SAT 94–99
[2020-12-07] MEDS: Butalb/Acetamin/Caff 50/325/40 TABLET 1 TAB PO ×2 (03:43→23:28)
[2020-12-07] MEDS: Enoxaparin Sodium 40 MG/0.4 ML SYRINGE SUBCUT (04:50)
[2020-12-07 07:22] LABS: Cholesterol 149 mg/dL; HDL Cholesterol 53 mg/dL; LDL Cholesterol Calculated 82 mg/dl; Triglycerides 74 mg/dL
[2020-12-07] MEDS: Labetalol HCL 100 MG TABLET 300 MG PO ×2 (08:41→21:09)
[2020-12-07] MEDS: Aspirin Enteric Coated 81 MG TABLET.DR PO (08:42)
[2020-12-07] MEDS: Acetaminophen 325 MG TABLET 650 MG PO (08:42)
[2020-12-07] MEDS: Fluticasone Propionate Nasal 16 GM SPRAY 1 SPRAY NOSTRIL-B (08:43)
[2020-12-07] MEDS: Fluticasone/Vilanterol 100/25 BLST.W.DEV 1 PUFF INHALE (08:43)
[2020-12-07] MEDS: 0.9 % Sodium Chloride 1,000 ML 100 ML IVCONT ×2 (10:55→20:41)
--- NOTE | 2020-12-07 12:03 | P.PNIM_ITS ---
Subjective Subjective Date of Service: 12/07/20 <Radhika Mosqueda NP - Last Filed: 12/07/20 12:25> 12/07/20 <Los Montaño MD - Last Filed: 12/07/20 18:51> Interval History: Follow-up syncope no dizziness feels tired <Radhika Mosqueda NP - Last Filed: 12/07/20 12:25> Physical Exam Vital Signs: Vital Signs: Last Vital Signs Temp 97.8 F 12/07/20 07:42 Pulse 85 12/07/20 11:07 Resp 20 12/07/20 07:42 BP 150/67 H 12/07/20 11:07 Pulse Ox 96 12/07/20 07:42 Body Mass Index 44.6 <Radhika Mosqueda NP - Last Filed: 12/07/20 12:25> Appearing in no acute distress lung sounds are clear to auscultation heart regular rate rhythm, clear S1, S2 positive bowel sounds, abdomen is soft, nontender neuro patient is alert x3, no focal deficits <Radhika Mosqueda NP - Last Filed: 12/07/20 12:25> Objective Data Current Medications Generic Name Dose Route Start Last Admin Trade Name Freq PRN Reason Stop Dose Admin Acetaminophen 650 mg 12/06/20 03:48 12/07/20 08:42 Acetaminophen 325 Mg Tablet PO 650 mg Q6H PRN Administration Pain, Mild (Pain Scale 1-3) Acetaminophen/Butalbital/Caffeine 1 tab 12/06/20 14:29 12/07/20 03:43 Butalb/Acetamin/Caff 50/325/40 Tablet PO 1 tab Q4H PRN Administration Headache Albuterol Sulfate 2 puff 12/06/20 14:32 Albuterol Sulfate 90 Mcg 8 Gm Inhaler INHALE Q4H PRN Shortness Of Breath Aspirin 81 mg 12/06/20 09:00 12/07/20 08:42 Aspirin Enteric Coated 81 Mg Tablet. PO 81 mg DAILY ED Administration Atorvastatin Calcium 80 mg 12/06/20 09:00 12/07/20 08:43 Atorvastatin Calcium 80 Mg Tablet PO Not Given DAILY ED Enoxaparin Sodium 40 mg 12/06/20 05:00 12/07/20 04:50 Enoxaparin Sodium 40 Mg/0.4 Ml Syringe SUBCUT 40 mg Q24H ED Administration Fluticasone Propionate 1 spray 12/07/20 09:00 12/07/20 08:43 Fluticasone Propionate Nasal 16 Gm [place] NOSTRIL-B 1 spray DAILY ED Administration Fluticasone/Vilanterol 1 puff 12/07/20 08:00 12/07/20 08:43 Fluticasone/Vilanterol 100/25 Blst.W.Dev INHALE 1 puff RDAILY ED Administration Furosemide 40 mg 12/07/20 09:00 12/07/20 08:43 Furosemide 40 Mg Tablet PO Not Given DAILY [facility] Protocol Sodium Chloride 1,000 mls @ 100 mls/hr 12/06/20 04:00 12/07/20 10:55 Ns IVCONT 100 mls/hr .Q10H ED Administration Labetalol HCl 300 mg 12/06/20 21:00 12/07/20 08:41 Labetalol Hcl 100 Mg Tablet PO 300 mg BID ED Administration Magnesium Hydroxide 30 ml 12/06/20 03:48 Milk Of Magnesia 30 Ml Oral.Susp PO DAILY PRN Constipation Nitroglycerin 0.4 mg 12/06/20 03:48 Nitroglycerin 0.4 Mg Tab.Subl SUBLINGUAL Q5M PRN Chest Pain Non-Formulary Medication 2 gm 12/06/20 17:00 Diclofenac Sodium [Voltaren] TOPICAL QID [facility] Pharmacy Consult 1 each 12/06/20 09:04 Consult Rx Perform Med Rec MISCELLANE ONCE PRN Consult order Senna 17.2 mg 12/06/20 03:48 Sennosides 8.6 Mg Tablet PO BEDTIME PRN Constipation Sodium Chloride 3 ml 12/06/20 08:00 12/07/20 08:44 0.9 % Sodium Chloride Flush 3 Ml Syringe IVFLUSH Not Given QSHIFT [facility] <Radhika Mosqueda NP - Last Filed: 12/07/20 12:25> Labs CBC & Chem 7: : 12/06/20 04:14 12/06/20 04:14 <Radhika Mosqueda NP - Last Filed: 12/07/20 12:25> Assessment and Plan (1) Syncope: Status: Acute <Radhika Mosqueda NP - Last Filed: 12/07/20 12:25> Assessment and Plan: 59-year-old woman admitted with syncope. She reports 4 days of left sided headache. She has h/o migraines, but this pain is more severe. This is associated with some photophobia. she denies fever, chills or neck pain. she has also had 2 days of left arm pain described as pins and needles from her left trapezius area to her left hand including all of her fingers. she also described difficulty swallowing food including liquids, although she was seen by speech and passed her swallow evaluation. due to this issue she has not been eating as much as usual. yesterday she reports 2 episodes of syncope. these both occurred after changing positions from sitting to standing. she stood up, felt everything go black and woke up on the floor. this has never happened before. Syncope Not orthostatic -echo pending Left face/arm numbness she states this has happened in the past no focal deficits. brain CT negative. out of window for tpa -MRI brain pending -neuro consult -seen by PT/OT -continue asa, statin Dysphagia passed bedside swallow eval, but describing difficulty swallowing preventing her from eating -MBSS o/p unless symptoms persist headache h/o migraines but not on medication -neuro eval pending -prn fioricet chest pain trop flat x 2, no ekg changes Morbid obesity. BMI 44.6 HTN -continue home meds dvt ppx - lovenox attending; Dr. Montaño <Radhika Mosqueda NP - Last Filed: 12/07/20 12:25> (2) Osteoarthritis of hands, bilateral: Status: Acute <Radhika Mosqueda NP - Last Filed: 12/07/20 12:25> Assessment and Plan: I saw and examined the patient and discussed findings, mangement, and disposition with PA and I agree with the above, except if otherwise stated.. MRI tomorrow <Los Montaño MD - Last Filed: 12/07/20 18:51>
--- NOTE | 2020-12-07 14:36 | PM.NEUROCN ---
History of Present Illness Data of Consult Service Date: 12/07/20 Primary Care Provider: Yobany Lemos MD 59 yo woman with who came to hospital with chief complaint of chest pain and then she reported that she passed out couple of times. There was no evidence of any convulsion. There was no focal weakness or speech or language difficulty. Review of Systems Review of Systems: No recent cold or flu-like illness PMFSH Past Medical History Medical History Ampullary adenoma Ascending cholangitis Asthma Cervical spondylosis Depression with anxiety Failed back syndrome Fatty liver GERD (gastroesophageal reflux disease) Gout Hypertension Obesity Obstructive sleep apnea Osteoarthritis Pancreatitis Restrictive lung disease TIA (transient ischemic attack) Vitamin B12 deficiency Vitamin D deficiency Family History Family History Father Prostate cancer Colon cancer Hypertension Mother Gastric cancer Diabetes Osteoarthritis Surgical History Surgical History H/O rectal polypectomy History of carpal tunnel release History of laparoscopic cholecystectomy History of left knee replacement History of lumbar discectomy History of tumor Status post right knee replacement Social History Social History (Updated 12/06/20 @ 16:29 by Joana Amaya RN) Alcohol intake: unknown Patient Tobacco Use Status: Never used Tobacco service: No Current occupational status: unemployed Meds Allergies Allergy/AdvReac Type Severity Reaction Status Date / Time Bryon inhibitors Allergy Unknown Unknown Verified 12/05/20 12:37 Ketoprofen Allergy Unknown unknown Verified 12/05/20 12:37 Active Medications: Current Medications Generic Name Dose Route Start Last Admin Trade Name Freq PRN Reason Stop Dose Admin Acetaminophen 650 mg 12/06/20 03:48 12/07/20 08:42 Acetaminophen 325 Mg Tablet PO 650 mg Q6H PRN Administration Pain, Mild (Pain Scale 1-3) Acetaminophen/Butalbital/Caffeine 1 tab 12/06/20 14:29 12/07/20 03:43 Butalb/Acetamin/Caff 50/325/40 Tablet PO 1 tab Q4H PRN Administration Headache Albuterol Sulfate 2 puff 12/06/20 14:32 Albuterol Sulfate 90 Mcg 8 Gm Inhaler INHALE Q4H PRN Shortness Of Breath Aspirin 81 mg 12/06/20 09:00 12/07/20 08:42 Aspirin Enteric Coated 81 Mg Tablet. PO 81 mg DAILY ED Administration Atorvastatin Calcium 80 mg 12/06/20 09:00 12/07/20 08:43 Atorvastatin Calcium 80 Mg Tablet PO Not Given DAILY [facility] Enoxaparin Sodium 40 mg 12/06/20 05:00 12/07/20 04:50 Enoxaparin Sodium 40 Mg/0.4 Ml Syringe SUBCUT 40 mg Q24H [facility] Administration Fluticasone Propionate 1 spray 12/07/20 09:00 12/07/20 08:43 Fluticasone Propionate Nasal 16 Gm [place] NOSTRIL-B 1 spray DAILY [facility] Administration Fluticasone/Vilanterol 1 puff 12/07/20 08:00 12/07/20 08:43 Fluticasone/Vilanterol 100/25 Blst.W.Dev INHALE 1 puff RDAILY [facility] Administration Furosemide 40 mg 12/07/20 09:00 12/07/20 08:43 Furosemide 40 Mg Tablet PO Not Given DAILY [facility] Protocol Sodium Chloride 1,000 mls @ 100 mls/hr 12/06/20 04:00 12/07/20 10:55 Ns IVCONT 100 mls/hr .Q10H [facility] Administration Labetalol HCl 300 mg 12/06/20 21:00 12/07/20 08:41 Labetalol Hcl 100 Mg Tablet PO 300 mg BID [facility] Administration Magnesium Hydroxide 30 ml 12/06/20 03:48 Milk Of Magnesia 30 Ml Oral.Susp PO DAILY PRN Constipation Nitroglycerin 0.4 mg 12/06/20 03:48 Nitroglycerin 0.4 Mg Tab.Subl SUBLINGUAL Q5M PRN Chest Pain Non-Formulary Medication 2 gm 12/06/20 17:00 Diclofenac Sodium [Voltaren] TOPICAL QID [facility] Pharmacy Consult 1 each 12/06/20 09:04 Consult Rx Perform Med Rec MISCELLANE ONCE PRN Consult order Senna 17.2 mg 12/06/20 03:48 Sennosides 8.6 Mg Tablet PO BEDTIME PRN Constipation Sodium Chloride 3 ml 12/06/20 08:00 12/07/20 08:44 0.9 % Sodium Chloride Flush 3 Ml Syringe IVFLUSH Not Given QSHIFT [facility] Home Medications Medication Instructions Recorded Confirmed Last Taken Type diclofenac sodium 1 % topical gel 2 g TOPICAL QID 11/06/20 12/06/20 Unknown History albuterol sulfate 2 puff INHALATION Q4H PRN 12/06/20 12/06/20 Unknown History fexofenadine 1 tab PO DAILY 12/06/20 12/06/20 12/05/20 History fluticasone propion-salmeterol 1 puff PO BID 12/06/20 12/06/20 12/05/20 History [Wixela Inhub] fluticasone propionate 1 spray INTRANASAL DAILY 12/06/20 12/06/20 12/05/20 History furosemide 1 tab PO DAILY 12/06/20 12/06/20 12/05/20 History labetalol 1 tab PO BID 12/06/20 12/06/20 12/05/20 History nifedipine 1 tab PO DAILY 12/06/20 12/05/20 History Physical Exam Vital Signs: Vital Signs: Last Vital Signs Temp 97.2 F 12/07/20 12:00 Pulse 76 12/07/20 12:00 Resp 18 12/07/20 12:00 BP 164/76 H 12/07/20 12:00 Pulse Ox 96 12/07/20 12:00 Body Mass Index 44.6 Alert and awake and oriented with normal spontaneity of speech fluency comprehension and affect. Face was symmetrical. There was no pronator drift. Deep tendon reflexes were trace with flexor plantars. Results Labs CBC & Chem 7: 12/06/20 04:14 12/06/20 04:14 Labs: Noncontrast head CT was unremarkable. Assessment and Plan (1) Syncope: Status: Acute 59 years old woman with nonspecific reporting of passing out or syncope. At this time examination was nonfocal and there was no obvious abnormality. I recommend outpatient EEG. Procedures Date of Service Date of Service: 12/07/20
[2020-12-08 02:50] VITALS: BP 161/72; PULSE 75; RESP 18; TEMP 36.9; O2SAT 97
[2020-12-08] MEDS: Enoxaparin Sodium 40 MG/0.4 ML SYRINGE SUBCUT (05:38)
[2020-12-08] MEDS: 0.9 % Sodium Chloride 1,000 ML 100 ML IVCONT (05:40)
[2020-12-08 07:48] VITALS: BP 142/78; PULSE 77; RESP 14; TEMP 36.7; O2SAT 98
[2020-12-08 07:53] VITALS: BP 142/78; PULSE 77
[2020-12-08] MEDS: Fluticasone/Vilanterol 100/25 BLST.W.DEV 1 PUFF INHALE (07:53)
[2020-12-08] MEDS: Aspirin Enteric Coated 81 MG TABLET.DR PO (07:53)
[2020-12-08] MEDS: Fluticasone Propionate Nasal 16 GM SPRAY 1 SPRAY NOSTRIL-B (07:53)
[2020-12-08] MEDS: Labetalol HCL 100 MG TABLET 300 MG PO (07:53)
--- NOTE | 2020-12-08 08:39 | P.DS_ITS ---
DS: Providers Provider Date of Service: 12/08/20 <Radhika Mosqueda NP - Last Filed: 12/08/20 10:33> Date of admission: 12/06/20 03:48 <Radhika Mosqueda NP - Last Filed: 12/08/20 10:33> Date of discharge: 12/08/20 <Radhika Mosqueda NP - Last Filed: 12/08/20 10:33> Primary care physician: Yobany Lemos MD <Radhika Mosqueda NP - Last Filed: 12/08/20 10:33> Admitting clinician: Carlos Green <Radhika Mosqueda NP - Last Filed: 12/08/20 10:33> Attending physician on admission: Carlos Green <Radhika Mosqueda NP - Last Filed: 12/08/20 10:33> Consults: 12/06/20 03:49 Consult to Neurology Routine Consulting Provider: Azalea Pressley Reason for consultation: LUE numbness; Syncopex2; headache/blurry vision 12/06/20 03:58 Consult to Cardiology Routine Consulting Provider: Chicho Mukherjee Reason for consultation: chest pain; syncopex2 <Radhika Mosqueda NP - Last Filed: 12/08/20 10:33> Attending physician on discharge: Los Montaño <Radhika Mosqueda NP - Last Filed: 12/08/20 10:33> Discharging clinician: Radhika Mosqueda <Radhika Mosqueda NP - Last Filed: 12/08/20 10:33> DS: Diagnosis Discharge Diagnosis (1) Syncope: Status: Acute <Radhika Mosqueda NP - Last Filed: 12/08/20 10:33> (2) Osteoarthritis of hands, bilateral: Status: Acute <Radhika Mosqueda NP - Last Filed: 12/08/20 10:33> DS: Medications Discharge Medications Home Medications: Home Medications Medication Instructions Recorded Confirmed diclofenac sodium 1 % topical gel 2 g TOPICAL QID 11/06/20 12/06/20 albuterol sulfate 2 puff INHALATION Q4H PRN 12/06/20 12/06/20 fexofenadine 1 tab PO DAILY 12/06/20 12/06/20 fluticasone propion-salmeterol 1 puff PO BID 12/06/20 12/06/20 [Wixela Inhub] fluticasone propionate 1 spray INTRANASAL DAILY 12/06/20 12/06/20 furosemide 1 tab PO DAILY 12/06/20 12/06/20 labetalol 1 tab PO BID 12/06/20 12/06/20 nifedipine 1 tab PO DAILY 12/06/20 <Radhika Mosqueda [employer] - Last Filed: 12/08/20 10:33> DS: Summary Hospital Course Hospital Course: HP as per admitting provider 59-year-old female with a past medical history of hypertension, hyperlipidemia, obesity, gout, TIA, obstructive sleep apnea, osteoarthritis, history of pancreatitis, anxiety, depression, history of cervical spondylolysis, asthma, restrictive lung disease presented to the hospital with a chief complaint of chest pain. Patient mentions that yesterday afternoon she had observed of the chest pain, hip in nature, nonradiating no associated sweating; noted nausea. Subsequently she had an episode of syncope unknown amount of downtime; denies any seizure-like activity. Denies any confusion. Denies any lightheadedness or dizziness. Patient reports that she had 2 episodes of syncope yesterday afternoon. Later in the evening patient mentioned that she started to noted days weak on her left side more so on the left upper extremity including numbness. Patient also reports he felt numbness on her left side of the face both upper and lower. At the time of my interview patient reports the chest pain improved, her left upper extremity numbness improving but still persistent. Left leg appears to have improved symptoms. Patient reports that she has headaches and blurry visions which are improving at the time of my entry. Denies any fever chills cough. Denies any GI or symptoms . Syncope. No episodes during hospitalization. Initially presenting due to unrelenting migraine headache. she got up from a seated position felt lightheaded, felt her vision going dark and apparently passed on the floor. Initial brain CT negative, no infectious etiology. She was not noted to be orthostatic but may have been when she fell at home. No arrhythmia on telemetry, no seizure type activity, labs all within acceptable limits, stable vital signs. Seen and evaluated by cardiology with no recommendation for inpatient workup, she can follow-up with Cardiology for outpatient tilt-table test. Neurology also evaluated patient with recommendation for out patient EEG. She also had some dysphagia, passed a speech and swallow eval if she has any further symptoms of this she may follow-up with her primary care provider for a modified barium swallow <Radhika Mosqueda NP - Last Filed: 12/08/20 10:33> Time Spent with Patient Time attestation: Total time spent providing and/or coordinating discharge services: <Radhika Mosqueda NP - Last Filed: 12/08/20 10:33> Discharge coordination time: Greater than 30 minutes <Radhika Mosqueda NP - Last Filed: 12/08/20 10:33> Quality: Stroke Does the patient have a stroke diagnosis?: No <Radhika Mosqueda NP - Last Filed: 12/08/20 10:33> Physical Exam Vital Signs: Vital Signs: Last Vital Signs Temp 98.1 F 12/08/20 07:48 Pulse 77 12/08/20 07:53 Resp 14 12/08/20 07:48 BP 142/78 H 12/08/20 07:53 Pulse Ox 98 12/08/20 07:48 Body Mass Index 44.6 <Radhika Msoqueda NP - Last Filed: 12/08/20 10:33> Appearing in no acute distress head is normocephalic atraumatic eyes pupils are PERRLA sclera is anicteric mouth throat mucous membranes are intact and moist neck is supple no lymphadenopathy, no JVD noted lung sounds are clear to auscultation heart regular rate rhythm, clear S1, S2 positive bowel sounds, abdomen is soft, nontender neuro patient is alert x3, no focal deficits <Radhika Mosqueda NP - Last Filed: 12/08/20 10:33> Discharge Plan Discharge Anticipated Discharge Date/Time: 12/08/20 08:35 <Radhika Mosqueda NP - Last Filed: 12/08/20 10:33> Patient Disposition: Home, Self-Care <Radhika Mosqueda NP - Last Filed: 12/08/20 10:33> Discharge Diagnosis: Syncope <Radhika Mosqueda NP - Last Filed: 12/08/20 10:33> Syncope <Los Montaño MD - Last Filed: 12/08/20 16:32> Referrals: Azalea Pressley MD [Physician] - 1 Week (Follow up for eeg ) Yobany Lemos MD [Primary Care Provider] - 1 Week Chicho Mukherjee MD [Physician] - 1 Week (Follow up for tilt table test ) <Radhika Mosqueda NP - Last Filed: 12/08/20 10:33> Discharge Medications: Continued furosemide 40 mg tablet 1 tab PO DAILY RF: 0 fexofenadine 180 mg tablet 1 tab PO DAILY RF: 0 fluticasone propion-salmeterol [Wixela Inhub] 100-50 mcg/dose blister with device 1 puff PO BID RF: 0 labetalol 300 mg tablet 1 tab PO BID RF: 0 albuterol sulfate 90 mcg/actuation HFA aerosol inhaler 2 puff inhalation Q4H PRN (Reason: Shortness Of Breath) RF: 0 fluticasone propionate 50 mcg/actuation spray,suspension 1 spray intranasal DAILY RF: 0 nifedipine 90 mg tablet extended release 1 tab PO DAILY RF: 0 diclofenac sodium [Voltaren] 1 % gel 2 g topical QID RF: 0 <Radhika Mosqueda NP - Last Filed: 12/08/20 10:33> Discharge Orders: Discharge Order (Routine); Ordered 12/08/20 Ordered By: Radhika Mosqueda <Radhika Mosqueda NP - Last Filed: 12/08/20 10:33> Diet: advance to usual diet <Radhika Mosqueda NP - Last Filed: 12/08/20 10:33> advance to usual diet <Los Montaño MD - Last Filed: 12/08/20 16:32> Activity on Discharge: As tolerated <Radhika Mosqueda NP - Last Filed: 12/08/20 10:33> As tolerated <Los Montaño MD - Last Filed: 12/08/20 16:32> Stand Alone Forms: Patient Portal Discharge page <Radhika Mosqueda NP - Last Filed: 12/08/20 10:33> Care Plan Goals: No further episodes of syncope <Radhika Mosqueda NP - Last Filed: 12/08/20 10:33> Health Concerns: Syncope <Radhika Mosqueda NP - Last Filed: 12/08/20 10:33> Plan of Treatment: Follow up with cardiology for outpatient tilt table test Follow up with neurology for outpatient EEG When getting up, get up slowly, sit on the edge of the bed/chair, couch and slowly move to standing position. <Radhika Mosqueda NP - Last Filed: 12/08/20 10:33> Assessment: See discharge summary I saw and examined the patient and discussed findings, mangement, and disposition with PA and I agree with the above, except if otherwise stated <Radhika Mosqueda, MISA - Last Filed: 12/08/20 10:33> Discharge Date/Time: 12/08/20 12:36 <Radhika Mosqueda NP - Last Filed: 12/08/20 10:33>
--- NOTE | 2020-12-08 09:05 | MHC.CM.PN ---
PT CLEARED TO DC HOME TODAY WITH NO SERVICES FAMILY TO TRANSPORT
[2020-12-08 11:26] VITALS: BP 182/84; PULSE 70; RESP 18; TEMP 37.1; O2SAT 98
== END 2020-12-08 12:36 | disposition home or self-care (01) ==
LOC: HO.ED 12-06 02:20 → HO.EDOVER 12-06 05:55 → HO.IMC 12-06 14:24
PROVIDERS: Admitting Provider Hospitalist; Emergency Provider Emergency Medicine Emergency Medical Services; PCP Internal Medicine; Visit Provider Internal Medicine
DX: R55 Syncope and collapse (principal); R07.9 Chest pain, unspecified; I10 Essential (primary) hypertension; I45.81 Long QT syndrome; G47.33 Obstructive sleep apnea (adult) (pediatric); E66.01 Morbid (severe) obesity due to excess calories; M19.042 Primary osteoarthritis, left hand; M19.041 Primary osteoarthritis, right hand; E53.8 Deficiency of other specified B group vitamins; E55.9 Vitamin D deficiency, unspecified; J45.909 Unspecified asthma, uncomplicated; K21.9 Gastro-esophageal reflux disease without esophagitis; R94.31 Abnormal electrocardiogram [ECG] [EKG]; M10.9 Gout, unspecified; R51.9 Headache, unspecified; R20.0 Anesthesia of skin; R13.10 Dysphagia, unspecified; Z68.41 Body mass index [BMI] 40.0-44.9, adult; Z88.8 Allergy status to other drugs, medicaments and biological substances; Z20.822 Contact with and (suspected) exposure to COVID-19; Z86.73 Personal history of transient ischemic attack (TIA), and cerebral infarction without residual deficits; Z96.653 Presence of artificial knee joint, bilateral; Z79.82 Long term (current) use of aspirin; Z79.899 Other long term (current) drug therapy
CPT/HCPCS: 36415; 70450; 71045; 80048; 80053; 80061; 81003; 83036; 84484; 85025; 85379; 87635; 92523; 92610; 93005; 96361; 96372; 96374; 96375; 97162; 97165; 99219; 99285; J1200; J1650; J1885; J2765

== ENCOUNTER 2021-01-13 06:41 | Outpatient (REF) | payer OTHER, SELFPAY ==
--- NOTE | 2021-01-13 06:43 | EEG_ITS ---
This is a 16-channel EEG with an EKG lead. The patient is reported awake during the tracing. Background EEG rhythm is low amplitude fast with no obvious asymmetry or paroxysmal tendency. The patient frequently transition into drowsiness with appropriate slowing. Photic stimulation does not produce any significant abnormality. Hyperventilation is unremarkable. No sharp wave spikes or paroxysmal tendency noted. Cardiac lead does not reveal any significant abnormality. IMPRESSION: Unremarkable EEG. MD RUBINA Carreno/[place] / [id number]
== END 2021-01-13 06:42 | disposition home or self-care (01) ==
LOC: HO.NEURO 06:41
PROVIDERS: Visit Provider Internal Medicine
DX: R55 Syncope and collapse (principal)
CPT/HCPCS: 95819

== ENCOUNTER → 2021-03-13 13:44 | Outpatient (BNVA) | payer OTHER, SELFPAY | PROVIDERS: PCP Internal Medicine; Referring Provider Internal Medicine; Visit Provider Internal Medicine Cardiovascular Disease | DX: I10 Essential (primary) hypertension (principal) | CPT/HCPCS: 99212 ==

== ENCOUNTER 2021-03-27 14:25 | Outpatient (REF) | payer OTHER, SELFPAY ==
--- NOTE | ~2021-03-27 | US_ITS ---
EXAMINATION: US RETROPERITONEAL LIMITED (RENAL ONLY). RENAL DOPPLER EXAM CLINICAL INFORMATION: Hypertension. COMPARISON: None TECHNIQUE: Routine retroperitoneal ultrasound imaging was performed. In addition retroperitoneal vascular and Doppler imaging was performed. FINDINGS: RIGHT KIDNEY: 11.0 x 5.6 x 5.3 cm (SAG x AP x TRV). The kidney is normal in size, contour, and echogenicity. Renal cortical thickness is normal. No calculi or focal parenchymal lesions. No hydronephrosis. LEFT KIDNEY: 11.4 x 5.7 x 4.9 cm (SAG x AP x TRV). The kidney is normal in size, contour, and echogenicity. Renal cortical thickness is normal. No calculi or focal parenchymal lesions. No hydronephrosis. There is an anechoic cyst laterally in and lower pole measuring 2.7 x 2.5 x 2.7 cm On Doppler exam, Right kidney: The resistive index upper pole measures 0.69, midpole measures 0.61 and lower pole measures 0.68. The renal-aortic ratio measures 0.96. The peak systolic velocity proximal renal artery measures 75.0 cm/s, mid segment measures 70.5 cm/s and the distal segment measures 55.9 cm/s. Left kidney: Peak systolic velocity proximal renal artery measures 52.9 cm/s, mid segment measures 69.2 cm/s and the distal segment measures 54.6 cm/s. Renal aortic ratio measures 0.88. Resistive index upper pole measures 0.73, midpole measures 0.67 and lower pole measures 0.68. US/US renal doppler IMPRESSION: Small left renal cysts. No echogenic calculi or hydronephrosis seen on either kidney. Normal renal aortic velocities, renal aortic ratio and resistant indices in both kidneys.
--- NOTE | ~2021-03-27 | US_ITS ---
EXAMINATION: US RETROPERITONEAL LIMITED (RENAL ONLY). RENAL DOPPLER EXAM CLINICAL INFORMATION: Hypertension. COMPARISON: None TECHNIQUE: Routine retroperitoneal ultrasound imaging was performed. In addition retroperitoneal vascular and Doppler imaging was performed. FINDINGS: RIGHT KIDNEY: 11.0 x 5.6 x 5.3 cm (SAG x AP x TRV). The kidney is normal in size, contour, and echogenicity. Renal cortical thickness is normal. No calculi or focal parenchymal lesions. No hydronephrosis. LEFT KIDNEY: 11.4 x 5.7 x 4.9 cm (SAG x AP x TRV). The kidney is normal in size, contour, and echogenicity. Renal cortical thickness is normal. No calculi or focal parenchymal lesions. No hydronephrosis. There is an anechoic cyst laterally in and lower pole measuring 2.7 x 2.5 x 2.7 cm On Doppler exam, Right kidney: The resistive index upper pole measures 0.69, midpole measures 0.61 and lower pole measures 0.68. The renal-aortic ratio measures 0.96. The peak systolic velocity proximal renal artery measures 75.0 cm/s, mid segment measures 70.5 cm/s and the distal segment measures 55.9 cm/s. Left kidney: Peak systolic velocity proximal renal artery measures 52.9 cm/s, mid segment measures 69.2 cm/s and the distal segment measures 54.6 cm/s. Renal aortic ratio measures 0.88. Resistive index upper pole measures 0.73, midpole measures 0.67 and lower pole measures 0.68. US/US renal BI IMPRESSION: Small left renal cysts. No echogenic calculi or hydronephrosis seen on either kidney. Normal renal aortic velocities, renal aortic ratio and resistant indices in both kidneys.
== END 2021-03-27 14:26 | disposition home or self-care (01) ==
LOC: HO.US 14:25
PROVIDERS: PCP Internal Medicine; Visit Provider Internal Medicine Cardiovascular Disease
DX: I10 Essential (primary) hypertension (principal); N28.1 Cyst of kidney, acquired
CPT/HCPCS: 76775; 93975

== ENCOUNTER 2022-05-28 08:21 | Outpatient (REF) | payer OTHER, SELFPAY ==
--- NOTE | ~2022-05-28 | MM_ITS ---
EXAMINATION: MM SCREENING DIGITAL BREAST TOMOSYNTHESIS, BILATERAL CLINICAL INFORMATION: Screening. Asymptomatic. The lifetime risk of breast cancer based on the Tyrer-Cuzick Model is 7%. COMPARISON: Mammography: July 22, 2018 and studies dating back to October 12, 2014 TECHNIQUE: Digital breast tomosynthesis is performed in both the craniocaudal and mediolateral oblique views along with computer-aided detection (CAD). Synthesized 2D images are generated from the tomosynthesis. FINDINGS: The breasts are almost entirely fatty (ACR BI-RADS breast composition Category a). There are no significant masses, abnormal calcifications, or other abnormalities. MM/MM tomosynthesis screening BI IMPRESSION: No significant changes from prior exam. ASSESSMENT: BI-RADS 1: Negative RECOMMENDATION: Routine annual mammography screening. This patient's information was entered into a reminder system with a target due date for their next mammogram.
== END 2022-05-28 08:22 | disposition home or self-care (01) ==
LOC: HO.MAMMO 08:21
PROVIDERS: Visit Provider Student in an Organized Health Care Education/Training Program
DX: Z12.31 Encounter for screening mammogram for malignant neoplasm of breast (principal)
CPT/HCPCS: 77063; 77067

== ENCOUNTER 2024-01-14 07:46 | Outpatient (AMB) | payer MEDICARE, SELFPAY ==
[2024-01-14 08:25] VITALS: BP 162/98; PULSE 81; O2SAT 96; BMI 45.3
--- NOTE | 2024-01-14 08:25 | MHC.PC.OV ---
Vital Signs 01/14/24 08:25 Height 5 ft 5 in Weight 272 lb BMI 45.3 BP 162/98 H Blood Pressure Location Lt brachial Position Sitting Pulse 81 Pulse Source Pulse Oximeter Pulse Oximetry (%) 96 Oxygen Delivery Method Room Air Intake Visit Reasons: follow up Allergies JUSTO Inhibitors Allergy (Unknown, Verified 01/14/24 08:26) Unknown ketoprofen Allergy (Unknown, Verified 01/14/24 08:26) Unknown Medication List - Last Reconciled 01/14/24 by Yobany Lemos MD albuterol sulfate 90 mcg/actuation 2 puffs inhalation Q4H PRN [CPAP As directed] diclofenac sodium 1% (Voltaren) 2 grams topical QID fluticasone propion-salmeterol 250-50 mcg/dose (Wixela Inhub) 1 inh inhalation BID fluticasone propionate 50 mcg/actuation 1 spray intranasal DAILY furosemide 20 mg (1/2 x 40 mg) PO DAILY 90 days labetalol 200 mg PO BID labetalol 200 mg (2 x 100 mg) PO BID 90 days loratadine (Claritin) 10 mg PO DAILY montelukast (Singulair) 10 mg PO BEDTIME 90 days Tobacco use date assessed: 01/14/24 Dental Screening Dental Screen Date: 01/14/24 Did you have a dental visit in the last 12 months?: Yes Did you have a dental problem in the last 6 months where you did not have access to dental care?: No Was dental information given to patient?: Patient has dentist HPI follow up HPI Details 63-year-old morbidly obese female with a history of ampullary adenoma followed up by Gastroenterology asthma GERD hypertension obstructive sleep apnea coming in for follow-up. Last seen in July 2022. Review of the notes patient up-to-date with colonoscopy patient is due for mammogram . States has sciatic nerve problem and offered PT but patient decline [facility] Medical History (Updated 01/14/24 @ 08:34 by Yobany Lemos MD) Ampullary adenoma Restrictive lung disease Ascending cholangitis Pancreatitis Osteoarthritis GERD (gastroesophageal reflux disease) TIA (transient ischemic attack) Asthma Vitamin B12 deficiency Vitamin D deficiency Obstructive sleep apnea Obesity Depression with anxiety Fatty liver Hypertension Cervical spondylosis Ampullary adenoma Gout Failed back syndrome Surgical History Status post right knee replacement History of tumor History of laparoscopic cholecystectomy History of left knee replacement H/O rectal polypectomy History of carpal tunnel release History of lumbar discectomy Family History Father Prostate cancer Colon cancer Hypertension Mother Gastric cancer Diabetes Osteoarthritis Maternal Grandfather Gastric cancer Maternal Grandmother Breast cancer Paternal Grandfather Pancreatic cancer Paternal Aunt Colon cancer Social History Housing: Apartment Alcohol intake: never Patient Tobacco Use Status: Never used Tobacco e-Cigarette/Vaping Use: Never Used Second Hand Smoke Exposure: No service: No Current occupational status: unemployed Cognitive needs: No Hearing needs: No Vision needs: No Questionnaire PHQ-9 Over the last 2 weeks, how often have you been bothered by any of the following problems? 1. Little interest or pleasure in doing things: not at all 2. Feeling down, depressed, or hopeless: not at all 3. Trouble falling or staying asleep, or sleeping too much: not at all 4. Feeling tired or having little energy: not at all 5. Poor appetite or overeating: not at all 6. Feeling bad about yourself - or that you are a failure or have let yourself or your family down: not at all 7. Trouble concentrating on things, such as reading the newspaper or watching television: not at all 8. Moving or speaking so slowly that other people could have noticed. Or the opposite - being so fidgety or restless that you have been moving around a lot more than usual: not at all 9. Thoughts that you would be better off or of hurting yourself in some way: not at all Total score: 0 Depression Screening Interpretation: Negative Depression Screening Done: Yes Source: Developed by Drs. Koffi Brandt, Dedra Candelario, Tao Price and colleagues, with an educational landon from [employer]. Thrive Questionnaire Date Thrive assessed: 01/14/24 I am a: Patient What is your living situation today?: I have a steady place to live Within the past 12 months, did the food you bought not last and you didn't have the money to get more?: Never true Within the past 12 months, did you worry whether your food would run out before you got money to buy more?: Never true Do you have trouble paying for medicines?: No Do you have trouble getting transportation to medical appointments?: No Do you have trouble paying your heating and electricity bill?: No Do you have trouble taking care of your child, family member or friend?: No Do you have trouble with day-to-day activities such as bathing, preparing meals, shopping, managing finances, etc.?: No Are you currently unemployed and looking for a job?: No Are you interested in more education?: No Currently or been in a relationship where the following occur: No concerns reported THRIVE Score: 0 AUDIT C Alcohol Use Questionnaire (AUDIT-C) 1. How often do you have a drink containing alcohol?: Never Total Score: 0 MIKE-7 AMB Questionnaire MIKE-7 Date MIKE - 7 assessed: 01/14/24 Feeling nervous, anxious, or on edge: 0 = Not at all Not being able to stop or control worryin = Not at all Worrying too much about different things: 0 = Not at all Trouble relaxin = Not at all Being so restless that it is hard to sit still: 0 = Not at all Becoming easily annoyed or irritable: 0 = Not at all Feeling afraid as if something awful might happen: 0 = Not at all Total MIKE-7 score (0-4 normal; 5-9 mild; 10-14 moderate; 15-21 severe): 0 Source: Developed by Drs. Koffi Brandt, Dedra Candelario, Tao Price and colleagues, with an educational landon from [employer]. Physical exam (Primary Care) Vital Signs: Last Vital Signs Pulse 81 01/14/24 08:25 BP 162/98 H 01/14/24 08:25 Pulse Ox 96 01/14/24 08:25 Oxygen Delivery Method Room Air 01/14/24 08:25 BMI result Body Mass Index 45.3 Tobacco/Smoking Status: Tobacco use Status Tobacco use date assessed 01/14/24 01/14/24 08:38 Patient Tobacco Use Status Never used Tobacco 01/14/24 08:26 e-Cigarette/Vaping Use Never Used 01/14/24 08:26 PHQ-9: PHQ-9 Score PHQ-9: Total score 0 01/14/24 09:00 Depression Screening Interpretation: Negative Thrive Assessment: Date of Thrive Assessment Date Thrive assessed 01/14/24 01/14/24 08:38 Currently or been in a relationship where the following occur: No concerns reported Const General: alert; No acute distress Eyes Conjunctivae: conjunctivae normal Resp Auscultation: clear to auscultation bilaterally Cardio Rate: regular rate Rhythm: regular rhythm GI Inspection: Yes normal to inspection Extrem General: Yes normal to inspection and No edema Immunizations pneumoc 20-anastacia conj-dip cr(PF) 0.5 mL IM syringe Performing Provider: Yobany Lemos MD Performing Location: [facility] Administered by: Dodie Armendariz CMA on 01/14/24 09:00 Dose Route Admin Location Dispensed Lot Number Expiration Date [employer] 0.5 mL IM Left Deltoid 0.5 mL [id number] 11/26/24 0863-0656-35 [employer] VIS Given Date VIS Provided VIS Publication Date 01/14/24 Single Vaccine 21 Eligibility Eligibility Date Funding Source Not [facility] Eligible 01/14/24 Private Assessment and Plan Assessment & Plan (1) Ampullary adenoma: Comment: EGD Dr. Leger ERCP November 2016, November 2017, October 2018, March 2019, November 2019 ampullectomy January 2022 repeat EGD 2024 Code(s): D13.5 - Benign neoplasm of extrahepatic bile ducts Plan: Review of the notes from Gastroenterology EGD done in 02/24/2022 advised with no evidence of recurrent adenoma on the biopsies surveillance ERCP should be done 3 years after therefore 2024 (2) Asthma: Code(s): J45.909 - Unspecified asthma, uncomplicated Qualifiers: Asthma complication type: with acute exacerbation Asthma persistence: intermittent Asthma severity: mild Qualified Code(s): J45.21 - Mild intermittent asthma with (acute) exacerbation Plan: Presently on albuterol and Wixela reminded about rinsing mouth after using. Continue with Singulair (3) GERD (gastroesophageal reflux disease): Code(s): K21.9 - Gastro-esophageal reflux disease without esophagitis Qualifiers: Esophagitis presence: without esophagitis Qualified Code(s): K21.9 - Gastro-esophageal reflux disease without esophagitis Plan: Avoid the foods that causes that usually spicy foods, tomato products, juices, coffee, soda and foods that your sensitive to. After eating do not lie down, allow 3-4 hours before in lie down. And keep the head of bed above 30 degrees to avoid the acid from going up. (4) Obstructive sleep apnea: Comment: CPAP Code(s): G47.33 - Obstructive sleep apnea (adult) (pediatric) Plan: PAtient is still waiting for the part of the CPAP (5) Obesity: Code(s): E66.9 - Obesity, unspecified Qualifiers: Body mass index: BMI 40.0-44.9 Obesity classification: adult class 3 (BMI >= 40) Obesity type: due to excess calories Serious obesity comorbidity presence: with serious comorbidity Qualified Code(s): E66.01 - Morbid (severe) obesity due to excess calories; Z68.41 - Body mass index [BMI]40.0-44.9, adult Plan: Diet and exercise (6) Hypertension: Comment: Echocardiogram December 2019 EF 65-70% nuclear stress test negative EF 50-58% Code(s): I10 - Essential (primary) hypertension Qualifiers: Hypertension type: essential hypertension Qualified Code(s): I10 - Essential (primary) hypertension Plan: Continue with blood pressure medication. Decrease salt intake and exercise on labetalol 100 mg twice a day. PAtient cannot tolerate the nifedipine . states hypotension. PAtient states the BP at home is good. will leave the BP med labetalol only (7) Breast cancer screening by mammogram: Code(s): Z12.31 - Encounter for screening mammogram for malignant neoplasm of breast Plan: Reminded about mammogram (8) Colon cancer screening: Comment: May 2019 Code(s): Z12.11 - Encounter for screening for malignant neoplasm of colon Orders: Orders Pneumococcal 20 Immunization Today Z23 - Encounter for immunization Complete Blood Count Auto Diff Today I10 - Essential (primary) hypertension Comprehensive Met. Panel Today I10 - Essential (primary) hypertension Vitamin D 25-OH Total Today I10 - Essential (primary) hypertension Free T4 (Free Thyroxine) Today I10 - Essential (primary) hypertension Thyroid Stimulating Hormone Today I10 - Essential (primary) hypertension Lipid Panel Today E78.00 - Pure hypercholesterolemia, unspecified, I10 - Essential (primary) hypertension Vitamin B12 and Folate Today I10 - Essential (primary) hypertension MM tomosynthesis screening BI Today Z12.31 - Encounter for screening mammogram for malignant neoplasm of breast Referrals Rheumatology Referral M15.9 - Polyosteoarthritis, unspecified Medications: New gabapentin 100 mg PO DAILY 30 caps 4RF M15.9 - Polyosteoarthritis, unspecified Changed From labetalol Keep appt this month of March. 200 mg PO BID I10 - Essential (primary) hypertension To labetalol Keep appt this month of March. 200 mg (2 x 100 mg) PO BID 360 tabs 2RF 90 days I10 - Essential (primary) hypertension Refilled albuterol sulfate 90 mcg/actuation 2 puffs inhalation Q4H PRN 8.5 grams 5RF Shortness Of Breath I10 - Essential (primary) hypertension Discontinued nifedipine ER Take at noon time Discontinued Reason: Patient Refused 90 mg PO DAILY 90 days 90 tabs 1RF I10 - Essential (primary) hypertension furosemide Discontinued Reason: Doctor's Order 20 mg (1/2 x 40 mg) PO DAILY 90 days 45 tabs 3RF Coding Level of Care Code Est Pt Level 4 (44359) Diagnoses Ampullary adenoma D13.5 Mild intermittent asthma with acute exacerbation J45.21 Asthma complication type: with acute exacerbation Asthma persistence: intermittent Asthma severity: mild Gastroesophageal reflux disease without esophagitis K21.9 Esophagitis presence: without esophagitis Obstructive sleep apnea G47.33 Class 3 severe obesity due to excess calories with serious comorbidity and body mass index (BMI) of 40.0 to 44.9 in adult E66.01; Z68.41 Body mass index: BMI 40.0-44.9 Obesity classification: adult class 3 (BMI >= 40) Obesity type: due to excess calories Serious obesity comorbidity presence: with serious comorbidity Essential hypertension I10 Hypertension type: essential hypertension Breast cancer screening by mammogram Z12.31 Colon cancer screening Z12.11
== END 2024-01-14 09:13 | disposition home or self-care (01) ==
PROVIDERS: PCP Internal Medicine; Visit Provider Internal Medicine
DX: D13.5 Benign neoplasm of extrahepatic bile ducts (principal); E66.01 Morbid (severe) obesity due to excess calories; Z68.41 Body mass index [BMI] 40.0-44.9, adult; Z23 Encounter for immunization; J45.21 Mild intermittent asthma with (acute) exacerbation; K21.9 Gastro-esophageal reflux disease without esophagitis; G47.33 Obstructive sleep apnea (adult) (pediatric); I10 Essential (primary) hypertension; Z12.31 Encounter for screening mammogram for malignant neoplasm of breast; Z12.11 Encounter for screening for malignant neoplasm of colon
CPT/HCPCS: 90471; 90677; 99214

== ENCOUNTER 2024-04-18 08:46 | Outpatient (REF) | payer MEDICARE, SELFPAY ==
[2024-04-18 09:05] LABS: MANUAL DIFF FLAG NO
[2024-04-18 09:35] LABS: Basophils Percent Auto 0.6 % (0-2); Eosinophils Absolute Auto 0.1 X10*3/uL (0.0-0.4); Eosinophils Percent Auto 1.9 % (0-4); Hematocrit 42.2 % (37.0-47.0); Hemoglobin 14.1 g/dl (12.0-16.0); Imm Gran Abs Auto 0.01 X10*3/uL (0.00-0.03); Imm Gran Pct Auto 0.1 % (0.0-0.4); Lymphocytes Absolute Auto 1.4 X10*3/uL (1.2-4.9); Lymphocytes Percent Auto 20.8 % (20-40); Mean Corpuscular HGB Conc 33.4 g/dl (31.0-35.0); Mean Corpuscular Hemoglobin 29.1 pg (27.0-33.0); Mean Platelet Volume 9.8 fL (9.4-12.3); Monocytes Absolute Auto 0.8 X10*3/uL (0.1-1.2); Monocytes Percent Auto 11.4 % (2-11); Neutrophils Absolute Auto 4.4 x10*3/uL (2.0-8.3); Neutrophils Percent Auto 65.2 % (45-73); Platelet Count 297 X10*3/uL (160-400); Red Blood Count 4.85 X10*6/uL (4.20-5.50); Red Cell Distribution Width 13.4 % (11.0-16.0); White Blood Count 6.8 X10*3/uL (4.8-10.8)
[2024-04-18 11:07] LABS: Alanine Aminotransferase 33 U/L (0-31); Albumin Level 4.1 g/dL (3.5-5.0); Alkaline Phosphatase 68 U/L (39-117); Anion Gap 13 (12-20); Aspartate Amino Transferase 31 U/L (5-31); Bilirubin Total 0.5 mg/dL (0.0-1.0); Blood Urea Nitrogen 15 mg/dL (9-16); Calcium 9.8 mg/dL (8.4-10.2); Carbon Dioxide 25 mmol/L (22-29); Chloride 109 mmol/L (96-108); Cholesterol 167 mg/dL (<200); Estimated Glomerular Filt Rate 56; Glucose Random 93 mg/dL (60-115); HDL Cholesterol 51 mg/dL (>40); LDL Cholesterol Calculated 96 mg/dL (<100); Potassium 4.4 mmol/L (3.3-5.1); Sodium 143 mmol/L (135-145); Thyroid Stimulating Hormone 1.72 uIU/mL (0.32-4.0); Total Protein 7.4 g/dL (6.5-8.0); Triglycerides 102 mg/dL (<150); Vitamin D 25-OH Total 6.8 ng/mL (>30)
[2024-04-18 11:24] LABS: Folate 6.5 ng/mL (> or = 4.0); Vitamin B12 304 pg/mL (200-900)
== END 2024-04-18 08:47 | disposition home or self-care (01) ==
LOC: HO.LAB 08:46
PROVIDERS: PCP Internal Medicine; Visit Provider Internal Medicine
DX: I10 Essential (primary) hypertension (principal); E78.00 Pure hypercholesterolemia, unspecified
CPT/HCPCS: 36415; 80053; 80061; 82306; 82607; 82746; 84439; 84443; 85025

== ENCOUNTER 2024-05-17 08:21 | Outpatient (AMB) | payer MEDICARE, SELFPAY ==
--- NOTE | 2024-05-17 08:26 | MHC.PC.OV ---
Vital Signs 05/17/24 08:27 Height 5 ft 5 in Weight 266 lb BMI 44.3 BP 162/80 H Blood Pressure Location Lt brachial Position Sitting Pulse 84 Pulse Source Pulse Oximeter Pulse Oximetry (%) 94 Oxygen Delivery Method Room Air Intake Visit Reasons: OA, Asthma Allergies JUSTO Inhibitors Allergy (Unknown, Verified 05/17/24 08:28) Unknown ketoprofen Allergy (Unknown, Verified 05/17/24 08:28) Unknown Tobacco use date assessed: 01/14/24 Dental Screening Dental Screen Date: 01/14/24 HPI OA, Asthma HPI Details 63-year-old morbidly obese female with a history of asthma GERD obstructive sleep apnea hypertension and having an ampullary adenoma coming in for follow-up last seen in December 2023 for the adenoma next year planned ERCP surveillance. Patient's last colon test was done in 02/14/2022, mammogram is due. Patient states in a lot of stress but is good at home. 120/72- reminded about mammo PFSH Medical History (Updated 05/17/24 @ 09:09 by Yobany Lemos MD) Ampullary adenoma Restrictive lung disease Ascending cholangitis Pancreatitis Osteoarthritis GERD (gastroesophageal reflux disease) TIA (transient ischemic attack) Asthma Vitamin B12 deficiency Vitamin D deficiency Obstructive sleep apnea Obesity Depression with anxiety Fatty liver Hypertension Cervical spondylosis Ampullary adenoma Gout Failed back syndrome Surgical History Status post right knee replacement History of tumor History of laparoscopic cholecystectomy History of left knee replacement H/O rectal polypectomy History of carpal tunnel release History of lumbar discectomy Family History Father Prostate cancer Colon cancer Hypertension Mother Gastric cancer Diabetes Osteoarthritis Maternal Grandfather Gastric cancer Maternal Grandmother Breast cancer Paternal Grandfather Pancreatic cancer Paternal Aunt Colon cancer Social History Housing: Apartment Alcohol intake: never Patient Tobacco Use Status: Never used Tobacco Tobacco use type: Cigarette e-Cigarette/Vaping Use: Never Used Second Hand Smoke Exposure: No service: No Current occupational status: unemployed Cognitive needs: No Hearing needs: No Vision needs: No Questionnaire PHQ-9 Over the last 2 weeks, how often have you been bothered by any of the following problems? 1. Little interest or pleasure in doing things: not at all 2. Feeling down, depressed, or hopeless: not at all 3. Trouble falling or staying asleep, or sleeping too much: not at all 4. Feeling tired or having little energy: not at all 5. Poor appetite or overeating: not at all 6. Feeling bad about yourself - or that you are a failure or have let yourself or your family down: not at all 7. Trouble concentrating on things, such as reading the newspaper or watching television: not at all 8. Moving or speaking so slowly that other people could have noticed. Or the opposite - being so fidgety or restless that you have been moving around a lot more than usual: not at all 9. Thoughts that you would be better off or of hurting yourself in some way: not at all Total score: 0 Depression Screening Interpretation: Negative Depression Screening Done: Yes Source: Developed by Drs. Koffi Brandt, Dedra Candelario, Tao Price and colleagues, with an educational landon from [employer]. Thrive Questionnaire Date Thrive assessed: 01/14/24 AUDIT C Alcohol Use Questionnaire (AUDIT-C) 1. How often do you have a drink containing alcohol?: Never Total Score: 0 MIKE-7 AMB Questionnaire MIKE-7 Date MIKE - 7 assessed: 01/14/24 Source: Developed by Drs. Koffi Brandt, Dedra Candelario, Tao Price and colleagues, with an educational landon from [employer]. Physical exam (Primary Care) Vital Signs: Last Vital Signs Pulse 84 05/17/24 08:27 BP 162/80 H 05/17/24 08:27 Pulse Ox 94 05/17/24 08:27 Oxygen Delivery Method Room Air 05/17/24 08:27 BMI result Body Mass Index 44.3 Tobacco/Smoking Status: Tobacco use Status Tobacco use date assessed 01/14/24 05/17/24 08:30 Patient Tobacco Use Status Never used Tobacco 05/17/24 08:30 Tobacco use type Cigarette 05/17/24 08:30 e-Cigarette/Vaping Use Never Used 05/17/24 08:30 PHQ-9: PHQ-9 Score PHQ-9: Total score 0 05/17/24 09:07 Depression Screening Interpretation: Negative Thrive Assessment: Date of Thrive Assessment Date Thrive assessed 01/14/24 05/17/24 08:30 Const General: alert; No acute distress Eyes Conjunctivae: conjunctivae normal Resp Auscultation: clear to auscultation bilaterally Cardio Rate: regular rate Rhythm: regular rhythm GI Inspection: Yes normal to inspection Extrem General: Yes normal to inspection and No edema Office Procedures Flu Questionnaire Does the patient have a severe egg allergy?: No Does the patient have severe life threatening allergies?: No Does the patient have a fever or illness today?: No Has the patient ever had Guillain-[place] Syndrome?: No Has the patient ever had any past reaction to a flu shot?: No Immunizations Fluarix Triv [id number] (PF) 45 mcg (15 mcg x 3)/0.5 mL IM syringe Performing Provider: Yobany Lemos MD Performing Location: [facility] [place] [facility] Administered by: Dodie Armendariz CMA on 05/17/24 08:36 Dose Route Admin Location Dispensed Lot Number Expiration Date [facility] [employer] Machine Operator 0.5 mL IM Left Deltoid 0.5 mL [id number] 12/25/24 23298-715-12 [employer] VIS Given Date VIS Provided VIS Publication Date 05/17/24 Single Vaccine 21 Eligibility Eligibility Date Funding Source Not [facility] Eligible 05/17/24 Private Coding Level of Care Code Est Pt Level 4 (02572) Diagnoses Breast cancer screening by mammogram Ampullary adenoma D13.5 Mild intermittent asthma with acute exacerbation J45.21 Asthma complication type: with acute exacerbation Asthma persistence: intermittent Asthma severity: mild Class 3 severe obesity due to excess calories with serious comorbidity and body mass index (BMI) of 40.0 to 44.9 in adult E66.01; Z68.41 Body mass index: BMI 40.0-44.9 Obesity classification: adult class 3 (BMI >= 40) Obesity type: due to excess calories Serious obesity comorbidity presence: with serious comorbidity Essential hypertension I10 Hypertension type: essential hypertension Obstructive sleep apnea G47.33 Gastroesophageal reflux disease without esophagitis K21.9 Esophagitis presence: without esophagitis Vitamin D deficiency E55.9 Generalized anxiety disorder F41.1 Assessment & Plan Assessment & Plan (1) Breast cancer screening by mammogram: Code(s): Z12.31 - Encounter for screening mammogram for malignant neoplasm of breast Category: Medical Plan: Patient is reminded about mammogram (2) Ampullary adenoma: Comment: EGD Dr. Leger ERCP November 2016, November 2017, October 2018, March 2019, November 2019 ampullectomy January 2022 repeat EGD 2024 Code(s): D13.5 - Benign neoplasm of extrahepatic bile ducts Category: Medical Plan: Planned surveillance in 2024 (3) Asthma: Code(s): J45.909 - Unspecified asthma, uncomplicated Category: Medical Qualifiers: Asthma complication type: with acute exacerbation Asthma persistence: intermittent Asthma severity: mild Qualified Code(s): J45.21 - Mild intermittent asthma with (acute) exacerbation Plan: Continue with albuterol inhaler as needed and Wixela (4) Obesity: Code(s): E66.9 - Obesity, unspecified Category: Medical Qualifiers: Body mass index: BMI 40.0-44.9 Obesity classification: adult class 3 (BMI >= 40) Obesity type: due to excess calories Serious obesity comorbidity presence: with serious comorbidity Qualified Code(s): E66.01 - Morbid (severe) obesity due to excess calories; Z68.41 - Body mass index [BMI]40.0-44.9, adult Plan: Diet and exercise (5) Hypertension: Comment: Echocardiogram December 2019 EF 65-70% nuclear stress test negative EF 50-58% Code(s): I10 - Essential (primary) hypertension Category: Medical Qualifiers: Hypertension type: essential hypertension Qualified Code(s): I10 - Essential (primary) hypertension Plan: Continue with blood pressure medication. Decrease salt intake and exercise presently on labetalol 200 mg twice a day (6) Obstructive sleep apnea: Comment: CPAP Code(s): G47.33 - Obstructive sleep apnea (adult) (pediatric) Category: Medical Plan: Continue with the CPAP more than 4 hours a night and benefits from this (7) GERD (gastroesophageal reflux disease): Code(s): K21.9 - Gastro-esophageal reflux disease without esophagitis Category: Medical Qualifiers: Esophagitis presence: without esophagitis Qualified Code(s): K21.9 - Gastro-esophageal reflux disease without esophagitis Plan: Avoid the foods that causes that usually spicy foods, tomato products, juices, coffee, soda and foods that your sensitive to. After eating do not lie down, allow 3-4 hours before in lie down. And keep the head of bed above 30 degrees to avoid the acid from going up. (8) Vitamin D deficiency: Code(s): E55.9 - Vitamin D deficiency, unspecified Category: Medical Plan: Vitamin-D [id number] units once a day (9) Generalized anxiety disorder: Code(s): F41.1 - Generalized anxiety disorder Category: Medical Plan: Continue with present medication Orders: Orders Influenza [id number] Immunization Today Z23 - Encounter for immunization Medications: New cholecalciferol (vitamin D3) 50 mcg PO DAILY 90 caps 3RF 90 days E55.9 - Vitamin D deficiency, unspecified hydroxyzine HCl 25 mg PO TID PRN 60 tabs 0RF anxiety F41.1 - Generalized anxiety disorder Refilled fluticasone propion-salmeterol 250-50 mcg/dose (Wixela Inhub) 1 inh inhalation BID 60 ea 3RF J45.21 - Mild intermittent asthma with (acute) exacerbation montelukast (Singulair) 10 mg PO BEDTIME 90 tabs 3RF 90 days J45.21 - Mild intermittent asthma with (acute) exacerbation
[2024-05-17 08:27] VITALS: BP 162/80; PULSE 84; O2SAT 94; BMI 44.3
== END 2024-05-17 09:16 | disposition home or self-care (01) ==
PROVIDERS: PCP Internal Medicine; Visit Provider Internal Medicine
DX: J45.21 Mild intermittent asthma with (acute) exacerbation (principal); E66.01 Morbid (severe) obesity due to excess calories; Z68.41 Body mass index [BMI] 40.0-44.9, adult; Z12.31 Encounter for screening mammogram for malignant neoplasm of breast; D13.5 Benign neoplasm of extrahepatic bile ducts; I10 Essential (primary) hypertension; G47.33 Obstructive sleep apnea (adult) (pediatric); K21.9 Gastro-esophageal reflux disease without esophagitis; E55.9 Vitamin D deficiency, unspecified; F41.1 Generalized anxiety disorder

== ENCOUNTER → 2024-05-17 08:21 | Outpatient (BNVA) | payer MEDICARE, SELFPAY | PROVIDERS: PCP Internal Medicine; Visit Provider Internal Medicine | DX: Z23 Encounter for immunization (principal); D13.5 Benign neoplasm of extrahepatic bile ducts; J45.21 Mild intermittent asthma with (acute) exacerbation; E66.01 Morbid (severe) obesity due to excess calories; Z68.41 Body mass index [BMI] 40.0-44.9, adult; I10 Essential (primary) hypertension; G47.33 Obstructive sleep apnea (adult) (pediatric); K21.9 Gastro-esophageal reflux disease without esophagitis; E55.9 Vitamin D deficiency, unspecified; F41.1 Generalized anxiety disorder; Z71.3 Dietary counseling and surveillance | CPT/HCPCS: 90471; 90656; 96127; 99212 ==

== ENCOUNTER 2025-03-28 08:47 | Outpatient (AMB) | payer MEDICARE, SELFPAY ==
[2025-03-28 09:10] VITALS: BP 154/98; PULSE 82; O2SAT 96; BMI 42.8
--- NOTE | 2025-03-28 09:10 | MHC.PC.OV ---
Vital Signs 03/28/25 09:10 Height 5 ft 5 in Weight 257 lb BMI 42.8 BP 154/98 H Blood Pressure Location Lt brachial Position Sitting Pulse 82 Pulse Source Pulse Oximeter Pulse Oximetry (%) 96 Oxygen Delivery Method Room Air Intake Visit Reasons: Gastro Allergies JUSTO Inhibitors Allergy (Unknown, Verified 03/28/25 09:10) Unknown ketoprofen Allergy (Unknown, Verified 03/28/25 09:10) Unknown Tobacco use date assessed: 03/28/25 Dental Screening Dental Screen Date: 03/28/25 Did you have a dental visit in the last 12 months?: Yes Did you have a dental problem in the last 6 months where you did not have access to dental care?: No Was dental information given to patient?: Patient has dentist HPI Gastro HPI Details cough, with myalgia. 1 week, fevers, , non prodcutive, and daughter sick, covid is negative, no diarrhea PFSH Medical History (Updated 03/28/25 @ 12:13 by Yobany Lemos MD) Ampullary adenoma Restrictive lung disease Ascending cholangitis Pancreatitis Osteoarthritis GERD (gastroesophageal reflux disease) TIA (transient ischemic attack) Asthma Vitamin B12 deficiency Vitamin D deficiency Obstructive sleep apnea Obesity Depression with anxiety Fatty liver Hypertension Cervical spondylosis Ampullary adenoma Gout Failed back syndrome Surgical History Status post right knee replacement History of tumor History of laparoscopic cholecystectomy History of left knee replacement H/O rectal polypectomy History of carpal tunnel release History of lumbar discectomy Family History Father Prostate cancer Colon cancer Hypertension Mother Gastric cancer Diabetes Osteoarthritis Maternal Grandfather Gastric cancer Maternal Grandmother Breast cancer Paternal Grandfather Pancreatic cancer Paternal Aunt Colon cancer Social History Housing: Apartment Alcohol intake: never Patient Tobacco Use Status: Never used Tobacco Tobacco use type: Cigarette e-Cigarette/Vaping Use: Never Used Second Hand Smoke Exposure: No service: No Current occupational status: unemployed Cognitive needs: No Hearing needs: No Vision needs: No Questionnaire PHQ-9 Over the last 2 weeks, how often have you been bothered by any of the following problems? 1. Little interest or pleasure in doing things: not at all 2. Feeling down, depressed, or hopeless: not at all 3. Trouble falling or staying asleep, or sleeping too much: not at all 4. Feeling tired or having little energy: not at all 5. Poor appetite or overeating: not at all 6. Feeling bad about yourself - or that you are a failure or have let yourself or your family down: not at all 7. Trouble concentrating on things, such as reading the newspaper or watching television: not at all 8. Moving or speaking so slowly that other people could have noticed. Or the opposite - being so fidgety or restless that you have been moving around a lot more than usual: not at all 9. Thoughts that you would be better off or of hurting yourself in some way: not at all Total score: 0 Depression Screening Interpretation: Negative Depression Screening Done: Yes Source: Developed by Drs. Koffi Brandt, Dedra Candelario, Tao Price and colleagues, with an educational landon from [employer]. Thrive Questionnaire Date Thrive assessed: 03/28/25 I am a: Patient What is your living situation today?: I have a steady place to live Within the past 12 months, did the food you bought not last and you didn't have the money to get more?: Never true Within the past 12 months, did you worry whether your food would run out before you got money to buy more?: Never true Do you have trouble paying for medicines?: No Do you have trouble getting transportation to medical appointments?: No Do you have trouble paying your heating and electricity bill?: No Do you have trouble taking care of your child, family member or friend?: No Do you have trouble with day-to-day activities such as bathing, preparing meals, shopping, managing finances, etc.?: No Are you currently unemployed and looking for a job?: No Are you interested in more education?: No Currently or been in a relationship where the following occur: No concerns reported THRIVE Score: 0 AUDIT C Alcohol Use Questionnaire (AUDIT-C) 1. How often do you have a drink containing alcohol?: Never 3. How often do you have six or more drinks on one occasion?: Never Total Score: 0 MIKE-7 AMB Questionnaire MIKE-7 Date MIKE - 7 assessed: 03/28/25 Feeling nervous, anxious, or on edge: 0 = Not at all Not being able to stop or control worryin = Not at all Worrying too much about different things: 0 = Not at all Trouble relaxin = Not at all Being so restless that it is hard to sit still: 0 = Not at all Becoming easily annoyed or irritable: 0 = Not at all Feeling afraid as if something awful might happen: 0 = Not at all Total MIKE-7 score (0-4 normal; 5-9 mild; 10-14 moderate; 15-21 severe): 0 Source: Developed by Drs. Koffi Brandt, Dedra Candelario, Tao Price and colleagues, with an educational landon from [employer]. Physical exam (Primary Care) Vital Signs: Last Vital Signs Pulse 82 03/28/25 09:10 BP 154/98 H 03/28/25 09:10 Pulse Ox 96 03/28/25 09:10 Oxygen Delivery Method Room Air 03/28/25 09:10 BMI result Body Mass Index 42.8 Tobacco/Smoking Status: Tobacco use Status Tobacco use date assessed 03/28/25 03/28/25 09:11 Patient Tobacco Use Status Never used Tobacco 03/28/25 09:11 Tobacco use type Cigarette 03/28/25 09:11 e-Cigarette/Vaping Use Never Used 03/28/25 09:11 PHQ-9: PHQ-9 Score PHQ-9: Total score 0 03/28/25 09:40 Depression Screening Interpretation: Negative Thrive Assessment: Date of Thrive Assessment Date Thrive assessed 03/28/25 03/28/25 09:11 Currently or been in a relationship where the following occur: No concerns reported Const General: alert; No acute distress Eyes Conjunctivae: conjunctivae normal Resp Auscultation: clear to auscultation bilaterally Cardio Rate: regular rate Rhythm: regular rhythm GI Inspection: Yes normal to inspection Extrem General: Yes normal to inspection and No edema Coding Level of Care Code Est Pt Level 4 (12189) Complex EM visit Add On G2211 Diagnoses Essential hypertension I10 Hypertension type: essential hypertension Vitamin D deficiency E55.9 Morbid obesity E66.01 Ampullary adenoma D13.5 Gastroesophageal reflux disease without esophagitis K21.9 Esophagitis presence: without esophagitis Breast cancer screening by mammogram Z12.31 Mild intermittent asthma with acute exacerbation J45.21 Asthma complication type: with acute exacerbation Asthma persistence: intermittent Asthma severity: mild Obstructive sleep apnea G47.33 Cough R05.9 Assessment & Plan Assessment & Plan (1) Hypertension: Comment: Echocardiogram December 2019 EF 65-70% nuclear stress test negative EF 50-58% Code(s): I10 - Essential (primary) hypertension Category: Medical Qualifiers: Hypertension type: essential hypertension Qualified Code(s): I10 - Essential (primary) hypertension Plan: Continue with blood pressure medication. Decrease salt intake and exercise patient is on labetalol 200 mg twice a day (2) Vitamin D deficiency: Code(s): E55.9 - Vitamin D deficiency, unspecified Category: Medical Plan: Vitamin-D 2614-0405 units once a day (3) Morbid obesity: Code(s): E66.01 - Morbid (severe) obesity due to excess calories Category: Medical Plan: Diet and exercise (4) Ampullary adenoma: Comment: EGD Dr. Leger ERCP November 2016, November 2017, October 2018, March 2019, November 2019 ampullectomy January 2022 repeat EGD 2024, January 2025 Code(s): D13.5 - Benign neoplasm of extrahepatic bile ducts Category: Medical Plan: Patient had a recent EGD January 2025 no evidence of recurrence. (5) GERD (gastroesophageal reflux disease): Code(s): K21.9 - Gastro-esophageal reflux disease without esophagitis Category: Medical Qualifiers: Esophagitis presence: without esophagitis Qualified Code(s): K21.9 - Gastro-esophageal reflux disease without esophagitis Plan: Avoid the foods that causes that usually spicy foods, tomato products, juices, coffee, soda and foods that your sensitive to. After eating do not lie down, allow 3-4 hours before in lie down. And keep the head of bed above 30 degrees to avoid the acid from going up. (6) Breast cancer screening by mammogram: Code(s): Z12.31 - Encounter for screening mammogram for malignant neoplasm of breast Category: Medical (7) Asthma: Code(s): J45.909 - Unspecified asthma, uncomplicated Category: Medical Qualifiers: Asthma complication type: with acute exacerbation Asthma persistence: intermittent Asthma severity: mild Qualified Code(s): J45.21 - Mild intermittent asthma with (acute) exacerbation Plan: Continue with albuterol inhaler and Wixela (8) Obstructive sleep apnea: Comment: CPAP Code(s): G47.33 - Obstructive sleep apnea (adult) (pediatric) Category: Medical Plan: Continue to use the CPAP more than 4 hours a night and benefits from this. (9) Cough: Code(s): R05.9 - Cough, unspecified Category: Medical Plan: For the sore throat can take Cepacol lozenges, discussed about Delsym to help with dry cough so she can rest and advised to increase oral fluids. Patient also can take Tylenol for chills and fever. Workup requested Plan History of Present Illness The patient is a 64-year-old female presenting with management of hypertension and evaluation of weight loss. She has a history of morbid obesity and has recently achieved a 9-pound weight loss. Her medical history includes hypertension, obstructive sleep apnea, and gastroesophageal reflux disease (GERD). 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 She also has generalized anxiety disorder, last evaluated in April 2024. Preventative care measures discussed include a mammogram, which is currently due. Her last colonoscopy was performed in 2018. Recent blood work in March 2024 showed normal blood count, electrolytes, and renal function, with a creatinine level of 1. Cholesterol levels were favorable, with an LDL of 96 and triglycerides at 102. However, she was noted to have a low vitamin D level. Health Maintenance - Mammogram due for breast cancer screening - Last colonoscopy performed in 2018 - Blood work in March 2024 showed normal blood count and renal function - Cholesterol levels favorable with LDL of 96 - Low vitamin D level noted Social History Review of Systems - General: Reports recent 9-pound weight loss - Respiratory: Denies cough, hemoptysis, or wheezing - Gastrointestinal: Denies diarrhea - Neurological: Denies headaches, dizziness, or balance issues Physical Exam - Respiratory: Lungs clear to auscultation bilaterally, no wheezes, rales, or rhonchi Results - Endoscopy: Normal esophagus, stomach, and duodenum with no evidence of ampullary adenoma recurrence - Blood work (March 2024): Normal blood count, electrolytes, renal function with creatinine of 1, LDL of 96, triglycerides at 102, low vitamin D, normal thyroid function Plan Patient was informed and verbally consented to the use of an ambient scribe for clinic note documentation during this visit. 1. Hypertension The patient is currently on Labetalol 200 mg twice daily for hypertension management. Blood pressure management will be reassessed once the patient recovers from her current illness, as acute illness can affect blood pressure readings. 2. Obstructive Sleep Apnea The patient is advised to continue using her CPAP machine for more than 4 hours per night, which she finds beneficial. 3. Gastroesophageal Reflux Disease (Gerd) The patient is advised to continue with her current reflux management plan, including the use of an albuterol inhaler and Wixela. 4. Ampullary Adenoma Status Post Ampulectomy Recent endoscopy in January 2025 showed no evidence of recurrence of ampullary adenoma. 5. Preventative Care The patient is due for a mammogram as part of her routine preventative care. Discussion Notes I discussed with the patient the importance of continuing her current medication regimen for hypertension and the use of CPAP for sleep apnea. We also reviewed her recent endoscopy results, which showed no recurrence of ampullary adenoma, and emphasized the need for a mammogram as part of her preventative care. Patient Instructions - Continue taking Labetalol 200 mg twice daily for blood pressure management. - Use CPAP machine for more than 4 hours each night. - Follow the reflux management plan with albuterol inhaler and Wixela. - Schedule and complete a mammogram as part of routine preventative care. Orders: Orders MM tomosynthesis screening BI 03/28/25 Z12.31 - Encounter for screening mammogram for malignant neoplasm of breast Complete Blood Count Auto Diff 03/28/25 I10 - Essential (primary) hypertension Free T4 (Free Thyroxine) 03/28/25 I10 - Essential (primary) hypertension Lipid Panel 03/28/25 E78.00 - Pure hypercholesterolemia, unspecified, I10 - Essential (primary) hypertension Vitamin D 25-OH Total 03/28/25 I10 - Essential (primary) hypertension Comprehensive Met. Panel 03/28/25 I10 - Essential (primary) hypertension Thyroid Stimulating Hormone 03/28/25 I10 - Essential (primary) hypertension Vitamin B12 and Folate 03/28/25 I10 - Essential (primary) hypertension Magnesium 03/28/25 I10 - Essential (primary) hypertension UA CC w/rflx Micro + Cult 03/28/25 I10 - Essential (primary) hypertension, R30.0 - Dysuria SARS-CoV2/FLU/RSV 03/28/25 R05.9 - Cough, unspecified XR chest 2V 03/28/25 R05.9 - Cough, unspecified
--- OUTSIDE RECORDS SUMMARY | 2025-03-28 09:22 | XMS_ITS | Clinical Summary ---
Author Organization [facility] Address [address] [place] [address] Phone Care Team Providers Care Cut Order Hand Name Role Phone Yobany Lemos MD Primary Care Provider [phone] Allergies Active Allergy Reactions Criticality Noted Date Comments Ketoprofen Other (see comments) 04/24/2021 Medications NIFEdipine CC (ADALAT CC) 90 MG 24 hr tablet Take 90 mg by mouth 1 (one) time each day 0 Active fluticasone-angie meterol (Advair Diskus) 250-50 MCG/DOSE diskus inhaler Active Diclofenac Sodium 1 % gel Apply topically Active labetalol (NORMODYNE) 100 MG tablet TAKE 2 TABLETS (200 MG TOTAL) BY MOUTH IN THE MORNING AND 2 TABLETS (200 MG TOTAL) IN THE EVENING. 360 tablet 1 3 Active Active Problems Problem Noted Date Diagnosed Date Hypertension 05/28/2021 Essential hypertension 04/24/2021 Immunizations Immunization Administration Dates Next Due [place] SARS-COV-2 10/06/2020 Pneumococcal Polysaccharide 10/30/2018 Family History Medical History Relation Comments Cancer Father Prostate cancer/ Colon cancer Diabetes Father Heart disease Father Hypertension Father Kidney disease Father Stroke Father Cancer Father's Sister Colon cancer Cancer Maternal Grandmother Breast canc er Cancer Mother Gastric cancer Diabetes Mother Cancer Paternal Grandfather Pancreatic cancer Hypertension Sibling Relation Status Comments Father Father's Sister Maternal Grandmother Mother Paternal Grandfather Sibling Social History Tobacco Use Types Packs/Day Years Used Date Smoking Tobacco: Never Smokeless Tobacco: Never Alcohol Use Standard Drinks/Week Comments No 0 (1 standard drink = 0.6 oz pur e alcohol) Comments Unknown Sex and Gender Information Value Date Recorded Sex Assigned at Not on file Legal Sex Female 4:56 PM EST Gender Identity Not on file Sexual Orientation Not on file Last Filed Vital Signs Vital Sign Reading Time Taken Comments Blood Pressure 164/100 05/28/2021 2:02 PM EST Pulse 82 05/28/2021 2:02 PM EST Temperature - - Respiratory Rate - - Oxygen Saturation 96% 05/28/2021 2:02 PM EST Inhaled Oxygen Concentration - - Weight 122 kg (270 lb) 06/25/2021 11:38 AM EST Height - - Body Mass Index - - Plan of Treatment Health Maintenance Due Date Last Done Comments Breast Cancer Screening 1960 Colorectal Cancer Screening: Annual FOBT 01/01/2012 Colorectal Cancer Screening: Colonoscopy 01/01/2012 Colorectal Cancer Screening: Sigmoidoscopy 01/01/2012 Pneumococcal Vaccine: 50+ Ye ars (2 of 2 - PCV) 10/31/2019 10/30/2018 Influenza Vaccine (#1) 2025 Pneumococcal Vaccine: Peds ( 0 to 5 Years) and At-Risk Patients (6 to 49 Years) Discontinued 10/30/2018 Hepatitis B Vaccine Aged Out No longe r eligible based on patient's age to complete this topic Insurance ([id number]) ([id number]) Care Teams Cut Order Hand Relationship Specialty Start Date End Date Yobany Lemos MD [address] [place] PCP - General 07/08/20
--- OUTSIDE RECORDS SUMMARY | 2025-03-28 09:22 | XMS_ITS | Encounter Summary ---
Author Organization [facility] Address [address] [place] [address] Phone Care Team Providers Care Logging Equipment Mechanic Name Role Phone Yobany Lemos MD Primary Care Provider [phone] Reason for Visit * Reason Comments Med Refill Encounter Details Date Type Department Care Team (Late st Contact Info) Description 09/22/2022 Refill [facility] [address] [place] [phone] Mika Campo MD Social History Tobacco Use Types Packs/Day Years Used Date Smoking Tobacco: Never Smokeless Tobacco: Never Alcohol Use Standard Drinks/Week Comments No 0 (1 standard drink = 0.6 oz pur e alcohol) Comments Unknown Sex and Gender Information Value Date Recorded Sex Assigned at Not on file Legal Sex Female 4:56 PM EST Gender Identity Not on file Sexual Orientation Not on file documented as of this encounter Plan of Treatment Not on file documented as of this encounter Visit Diagnoses Not on filedocumented in this encounter Care Teams Logging Equipment Mechanic Relationship Specialty Start Date End Date Yobany Lemos MD [facility] [address] [place] [address] PCP - General 07/08/20 documented as of this encounter
== END 2025-03-28 12:40 | disposition home or self-care (01) ==
LOC: HO.HMCH 08:48
PROVIDERS: PCP Internal Medicine; Visit Provider Internal Medicine
DX: I10 Essential (primary) hypertension (principal); E55.9 Vitamin D deficiency, unspecified; Z68.41 Body mass index [BMI] 40.0-44.9, adult; E66.01 Morbid (severe) obesity due to excess calories; D13.5 Benign neoplasm of extrahepatic bile ducts; K21.9 Gastro-esophageal reflux disease without esophagitis; Z12.31 Encounter for screening mammogram for malignant neoplasm of breast; J45.21 Mild intermittent asthma with (acute) exacerbation; G47.33 Obstructive sleep apnea (adult) (pediatric); R05.9 Cough, unspecified

== ENCOUNTER 2025-03-28 08:47 | Outpatient (REF) | payer MEDICARE, SELFPAY ==
--- NOTE | ~2025-03-28 | XR_ITS ---
EXAMINATION: XR CHEST CLINICAL INFORMATION: R05.9 - Cough, unspecified COMPARISON: December 06, 2020 TECHNIQUE: 2 views of the chest were obtained. FINDINGS: Cardiomegaly is again noted. The lungs are clear. There is no evidence of a pleural effusion. XR/XR chest 2V IMPRESSION: Cardiomegaly. Electronically signed by: Mat Corona MD 03/28/2025 10:48 AM EDT
[2025-03-28 11:09] LABS: Resp Syncy Virus RNA Qual PCR NEGATIVE (Negative); SARS COV2 PCR INHOUSE POSITIVE (Negative)
== END 2025-03-28 08:48 | disposition home or self-care (01) ==
LOC: HO.XRAY 08:47
PROVIDERS: PCP Internal Medicine; Visit Provider Internal Medicine
DX: I10 Essential (primary) hypertension (principal); E55.9 Vitamin D deficiency, unspecified; E66.01 Morbid (severe) obesity due to excess calories; D13.5 Benign neoplasm of extrahepatic bile ducts; K21.9 Gastro-esophageal reflux disease without esophagitis; J45.21 Mild intermittent asthma with (acute) exacerbation; G47.33 Obstructive sleep apnea (adult) (pediatric); R05.9 Cough, unspecified; E78.00 Pure hypercholesterolemia, unspecified; R30.0 Dysuria; Z68.41 Body mass index [BMI] 40.0-44.9, adult; M79.10 Myalgia, unspecified site
CPT/HCPCS: 71046; 87637; 96127; 99212

== ENCOUNTER → 2025-03-28 10:25 | Outpatient (BNV) | payer MEDICARE, SELFPAY | PROVIDERS: PCP Internal Medicine; Visit Provider Radiology Diagnostic Radiology | DX: I51.7 Cardiomegaly (principal) | CPT/HCPCS: 71046 ==

== ENCOUNTER 2025-05-23 11:17 | Outpatient (REF) | payer MEDICARE, SELFPAY ==
[2025-05-23 11:33] LABS: MANUAL DIFF FLAG NO
[2025-05-23 12:35] LABS: Hematocrit 44.1 % (37.0-47.0); Hemoglobin 14.2 g/dl (12.0-16.0); Imm Gran Abs Auto 0.02 X10*3/uL (0.00-0.03); Imm Gran Pct Auto 0.3 % (0.0-0.4); Lymphocytes Absolute Auto 1.3 X10*3/uL (1.2-4.9); Mean Corpuscular HGB Conc 32.2 g/dl (31.0-35.0); Mean Corpuscular Hemoglobin 27.8 pg (27.0-33.0); Mean Corpuscular Volume 86.3 fL (80.0-98.0); NRBC Abs Auto 0.000 X10*3/uL (0.0-0.012); NRBC Pct Auto 0.0 /100WBC (0.0-0.2); Platelet Count 338 X10*3/uL (160-400); Red Blood Count 5.11 X10*6/uL (4.20-5.50); White Blood Count 6.9 X10*3/uL (4.8-10.8)
[2025-05-23 12:45] LABS: Appearance Urine Clear; Glucose Urine UA Negative (Negative); PH 5.5 (5.0-9.0); Specific Gravity - Urine 1.015 (1.005-1.025); UMIC TRIGGER UACC YES
[2025-05-23 13:16] LABS: Alanine Aminotransferase 24 U/L (0-31); Albumin Level 4.2 g/dL (3.5-5.0); Alkaline Phosphatase 74 U/L (39-117); Anion Gap 11 (12-20); Aspartate Amino Transferase 24 U/L (5-31); Blood Urea Nitrogen 19 mg/dL (9-16); Calcium 9.5 mg/dL (8.4-10.2); Carbon Dioxide 29 mmol/L (22-29); Chloride 105 mmol/L (96-108); Cholesterol 182 mg/dL (<200); Estimated Glomerular Filt Rate > 60; HDL Cholesterol 57 mg/dL (>40); Magnesium 2.1 mg/dL (1.6-2.6); Potassium 4.7 mmol/L (3.3-5.1); Sodium 140 mmol/L (135-145); Total Protein 7.7 g/dL (6.5-8.0); Triglycerides 85 mg/dL (<150)
[2025-05-23 13:36] LABS: Folate 7.9 ng/mL (> or = 4.0); Vitamin B12 214 pg/mL (200-900)
[2025-05-23 13:40] LABS: Free T4 (Free Thyroxine) 1.10 ng/dL (0.71-1.85); Thyroid Stimulating Hormone 1.08 uIU/mL (0.32-4.0)
--- OUTSIDE RECORDS SUMMARY | 2025-05-23 14:03 | XMS_ITS | Clinical Summary ---
Author Organization [facility] Address [address] [place] [address] Phone Care Team Providers Care Tablet Machine Operator Name Role Phone Yobany Lemos MD Primary Care Provider [phone] Allergies Active Allergy Reactions Criticality Noted Date [...] this topic Insurance ([id number]) ([id number]) Care Teams Tablet Machine Operator Relationship Specialty Start Date End Date Yobany Lemos MD [address] [place] PCP - General 07/08/20
--- OUTSIDE RECORDS SUMMARY | 2025-05-23 14:03 | XMS_ITS | Encounter Summary ---
Author Organization [facility] Address [address] [place] [address] Phone Care Team Providers Care Regional Facilities Manager Name Role Phone Yobany Lemos MD Primary Care Provider [phone] Reason for Visit * Reason Comments Med Refill Encounter Details Date Type Department Care Team (Late st Contact Info) Description 09/22/2022 Refill [facility] [address] [place] [phone] Mika Campo MD Social History Tobacco Use [...] on filedocumented in this encounter Care Teams Regional Facilities Manager Relationship Specialty Start Date End Date Yobany Lemos MD [facility] [address] [place] [address] PCP - General 07/08/20 documented as of this encounter
== END 2025-05-23 11:18 | disposition home or self-care (01) ==
LOC: HO.LAB 11:17
PROVIDERS: PCP Internal Medicine; Visit Provider Internal Medicine
DX: Z13.21 Encounter for screening for nutritional disorder (principal); I10 Essential (primary) hypertension; E78.00 Pure hypercholesterolemia, unspecified
CPT/HCPCS: 36415; 80053; 80061; 81001; 82306; 82607; 82746; 83735; 84439; 84443; 85025